=== PATIENT | female | born 1945 | race Caucasian/White ===

== ENCOUNTER 2016-05-18 11:40 | Emergency (ER) | payer OTHER ==
[~2016-05-18] VITALS: Ht 152.4 cm; Wt 69.9 kg
[~2016-05-18 11:40] MED LIST: ALPR0.5T PO; ASPI81CH43 PO; ATEN-60 PO; CYAN100023 PO
[2016-05-18 13:06] LABS: Basophils # (auto) 0.1 uL; Basophils % (auto) 0.4 % (0.0-2.0); Eosinophils # (auto) 0 uL; Hematocrit 48.4 % (36.0-46.0); Hemoglobin 15.6 g/dL (12.2-16.2); Lymphocytes # (auto) 1.1 uL; Lymphocytes % (auto) 8.3 % (10.0-50.0); Mean Corpuscular Hemoglobin 31.8 pg (28.0-32.0); Mean Corpuscular Hgb Conc. 32.3 g/dL (32.0-36.0); Mean Corpuscular Volume 98.2 fL (80.0-100.0); Mean Platelet Volume 7.7 fL (7.4-10.4); Monocytes # (auto) 0.9 uL; Monocytes % (auto) 6.9 % (0.0-12.0); Neutrophils # (auto) 11.1 uL; Neutrophils % (auto) 84.4 % (37.0-80.0); Platelet Count (auto) 365 10^3/uL (140-450); Red Cell Distribution Width 14.8 % (11.6-16.0); White Blood Cell 13.2 10^3/uL (4.4-10.8)
[2016-05-18 13:25] LABS: Albumin 4.2 g/dL (3.4-5.0); BUN/Creatinine Ratio 13.1; Bilirubin, Total 0.8 mg/dL (0.2-1.0); Calcium 9.3 mg/dL (8.5-10.1); Potassium 3.3 mmol/L (3.5-5.1); Total Protein 8.1 g/dL (6.4-8.2)
[2016-05-18 13:31] VITALS: BP 138/80
== END 2016-05-18 18:50 | disposition home or self-care (01) ==
LOC: EDBD 11:40 → ER 11:42
DX: R40.4 Transient alteration of awareness (principal); J44.9 Chronic obstructive pulmonary disease, unspecified; M19.90 Unspecified osteoarthritis, unspecified site; K50.90 Crohn's disease, unspecified, without complications; F17.210 Nicotine dependence, cigarettes, uncomplicated; Z79.82 Long term (current) use of aspirin; G89.29 Other chronic pain; R11.2 Nausea with vomiting, unspecified
CPT/HCPCS: 36415; 70450; 80053; 85025; 85049; 93005; 94761

== ENCOUNTER 2017-08-03 15:38 | Emergency (ER) | payer OTHER ==
[~2017-08-03] VITALS: Ht 152.4 cm; Wt 63.5 kg
[~2017-08-03 15:38] MED LIST changes: +ALPR0.254 PO; -ALPR0.5T PO; +CALC600T80 PO; +CHL4PW GT; +DICL1GEL26 TD; +GABA100C9 PO; +HYDR-4683 PO; +PANT40T PO; +SERT-138 PO; +TEMA15CA91 PO
[2017-08-03] MEDS ORDERED: SODIUM CHLORIDE 0.9% 1,000 ML IV ONE (16:00)
[2017-08-03 17:01] LABS: Basophils # (auto) 0.1 uL; Basophils % (auto) 1.2 % (0.0-2.0); Eosinophils # (auto) 0.2 uL; Lymphocytes # (auto) 2.2 uL; White Blood Cell 6.1 10^3/uL (4.4-10.8)
[2017-08-03 17:04] LABS: Eosinophils % (auto) 3.5 % (0.0-7.0); Hematocrit 37.2 % (36.0-46.0); Hemoglobin 12.3 g/dL (12.2-16.2); Mean Corpuscular Hemoglobin 35.5 pg (28.0-32.0); Mean Corpuscular Hgb Conc. 33.2 g/dL (32.0-36.0); Mean Corpuscular Volume 107.1 fL (80.0-100.0); Monocytes # (auto) 0.5 uL; Monocytes % (auto) 7.7 % (0.0-12.0); Neutrophils # (auto) 3.1 uL; Neutrophils % (auto) 51.6 % (37.0-80.0); Platelet Count (auto) 245 10^3/uL (140-450); Red Blood Cells 3.48 10^6/uL (4.0-5.20); Red Cell Distribution Width 14.7 % (11.8-14.3)
[2017-08-03 17:27] LABS: Alanine Aminotransferase 17 U/L (13-56); Albumin 3.5 g/dL (3.4-5.0); Alkaline Phosphatase 79 U/L (45-117); Anion Gap 10 (5-15); Aspartate Aminotransferase 15 U/L (15-37); Bilirubin, Total 0.2 mg/dL (0.2-1.0); Blood Urea Nitrogen 19 mg/dL (7-18); Carbon Dioxide 21 mmol/L (21-32); Chloride 111 mmol/L (98-107); GFR African American 49 mL/min; GFR Non-African American 41 mL/min; Glucose 81 mg/dL (74-106); Magnesium 2.2 mg/dL (1.6-2.6); Potassium 3.7 mmol/L (3.5-5.1); Sodium 142 mmol/L (136-145); Total Protein 6.7 g/dL (6.4-8.2)
[2017-08-03 19:42] VITALS: BP 140/102
[2017-08-03 19:58] LABS: Urine Bacteria FEW /hpf (None Seen); Urine Blood Negative /uL (Negative); Urine Specific Gravity 1.009 (1.001-1.035); Urine WBC 197 /hpf (0 - 5)
[2017-08-03 20:08] LABS: Amphetamine Screen, Urine NEGATIVE (NEGATIVE); Barbiturate Scree,Urine NEGATIVE (NEGATIVE); Benzodiazephine Screen, Urine POSITIVE (NEGATIVE); Cannabinoid Screen, Urine NEGATIVE (NEGATIVE); Cocaine Screen, Urine NEGATIVE (NEGATIVE); Opiate Scree,Urine POSITIVE (NEGATIVE); Phencyclidine Screen, Urine NEGATIVE (NEGATIVE)
== END 2017-08-03 19:48 | disposition home or self-care (01) ==
LOC: EDBD 15:38 → ER 15:40
DX: E86.0 Dehydration (principal); R55 Syncope and collapse; F10.10 Alcohol abuse, uncomplicated; G89.29 Other chronic pain; F17.210 Nicotine dependence, cigarettes, uncomplicated; I10 Essential (primary) hypertension; J44.9 Chronic obstructive pulmonary disease, unspecified; F41.9 Anxiety disorder, unspecified; M19.90 Unspecified osteoarthritis, unspecified site
CPT/HCPCS: 36415; 70450; 80053; 80307; 80320; 81001; 83735; 84484; 85025; 93005; 96360; 99285; J7030

== ENCOUNTER 2018-02-18 21:26 | Emergency (ER) | payer SELFPAY ==
[~2018-02-18] VITALS: Ht 142.2 cm; Wt 59.0 kg
[2018-02-18 22:42] LABS: Basophils # (auto) 0.2 uL; Eosinophils # (auto) 0.4 uL; Monocytes # (auto) 0.7 uL; Nucleated Red Blood Cells % 0.1 %
[2018-02-18 22:46] LABS: Basophils % (auto) 1.9 % (0.0-2.0); Eosinophils % (auto) 4.2 % (0.0-7.0); Hematocrit 51.3 % (36.0-46.0); Lymphocytes # (auto) 3.5 uL; Lymphocytes % (auto) 37.5 % (10.0-50.0); Mean Corpuscular Hemoglobin 35.4 pg (28.0-32.0); Mean Corpuscular Hgb Conc. 33.1 g/dL (32.0-36.0); Mean Corpuscular Volume 106.9 fL (80.0-100.0); Monocytes % (auto) 7.6 % (0.0-12.0); Neutrophils # (auto) 4.6 uL; Neutrophils % (auto) 48.8 % (37.0-80.0); Platelet Count (auto) 167 10^3/uL (140-450); White Blood Cell 9.4 10^3/uL (4.4-10.8)
[2018-02-18 22:58] LABS: Anion Gap 10 (5-15); Blood Urea Nitrogen 16 mg/dL (7-18); Calcium 9.2 mg/dL (8.5-10.1); Carbon Dioxide 25 mmol/L (21-32); Chloride 103 mmol/L (98-107); Glucose 79 mg/dL (74-106); Potassium 3.8 mmol/L (3.5-5.1); Sodium 138 mmol/L (136-145)
[2018-02-18 23:06] LABS: Alanine Aminotransferase 38 U/L (13-56); Alkaline Phosphatase 85 U/L (45-117); Aspartate Aminotransferase 38 U/L (15-37); BUN/Creatinine Ratio 13.8; Bilirubin, Total 0.3 mg/dL (0.2-1.0); GFR African American 59 mL/min; GFR Non-African American 49 mL/min
[2018-02-18] MEDS ORDERED: ONDANSETRON HCL 4 MG/2 ML VIAL IV ONE (23:15)
[2018-02-18] MEDS ORDERED: MORPHINE SULFATE 4 MG/ML SYR/VIAL IV ONE (23:15)
[2018-02-19 00:17] LABS: Urine Bacteria FEW /hpf (None Seen); Urine Blood Negative /uL (Negative); Urine Specific Gravity 1.008 (1.001-1.035); Urine WBC 35 /hpf (0 - 5)
[2018-02-19 02:42] VITALS: BP 99/48
[2018-02-19] MEDS ORDERED: ACETAMINOPHEN 500 MG TAB PO ONE (06:15)
== END 2018-02-19 04:46 | disposition home or self-care (01) ==
LOC: EDBD 21:26 → ER 21:32
DX: S32.018A Other fracture of first lumbar vertebra, initial encounter for closed fracture (principal); S16.1XXA Strain of muscle, fascia and tendon at neck level, initial encounter; S39.012A Strain of muscle, fascia and tendon of lower back, initial encounter; G92 Toxic encephalopathy; F10.120 Alcohol abuse with intoxication, uncomplicated; F17.210 Nicotine dependence, cigarettes, uncomplicated; J44.9 Chronic obstructive pulmonary disease, unspecified; I11.0 Hypertensive heart disease with heart failure; I50.9 Heart failure, unspecified; M19.90 Unspecified osteoarthritis, unspecified site; Z90.49 Acquired absence of other specified parts of digestive tract; Z90.89 Acquired absence of other organs; Z90.710 Acquired absence of both cervix and uterus; W22.8XXA Striking against or struck by other objects, initial encounter; Y93.89 Activity, other specified; Y99.8 Other external cause status; Y92.89 Other specified places as the place of occurrence of the external cause
CPT/HCPCS: 36415; 70450; 72125; 72128; 72131; 74176; 80053; 80320; 81001; 83880; 84484; 85025; 96374; 96375; 99285; J2270; J2405

== ENCOUNTER → 2018-10-25 | Outpatient (CLI) | payer OTHER ==
[2018-10-25 12:29] LABS: Basophils # (auto) 0.1 uL; Basophils % (auto) 0.9 % (0.0-2.0); Eosinophils # (auto) 0.3 uL; Eosinophils % (auto) 3.9 % (0.0-7.0); Hematocrit 36.9 % (36.0-46.0); Hemoglobin 11.6 g/dL (12.2-16.2); Lymphocytes # (auto) 1.8 uL; Lymphocytes % (auto) 24.6 % (10.0-50.0); Mean Corpuscular Hgb Conc. 31.6 g/dL (32.0-36.0); Monocytes # (auto) 0.5 uL; Monocytes % (auto) 6.7 % (0.0-12.0); Neutrophils # (auto) 4.7 uL; Neutrophils % (auto) 63.9 % (37.0-80.0); Platelet Count (auto) 350 10^3/uL (140-450); Red Blood Cells 3.76 10^6/uL (4.0-5.20); Red Cell Distribution Width 14.9 % (11.8-14.3); White Blood Cell 7.4 10^3/uL (4.4-10.8)
[2018-10-25 13:04] LABS: Albumin 3.5 g/dL (3.4-5.0); Calcium 9.5 mg/dL (8.5-10.1); Potassium 3.9 mmol/L (3.5-5.1)
[2018-10-25 13:09] LABS: BUN/Creatinine Ratio 11.3; Bilirubin, Total 0.4 mg/dL (0.2-1.0); CRP High Sensitivity 0.54 mg/dL (< 0.3); Total Protein 6.7 g/dL (6.4-8.2); Uric Acid 6.5 mg/dL (2.6-6.0)
[2018-10-25 13:15] LABS: Urine Bacteria FEW /hpf (None Seen); Urine Blood 1+ /uL (Negative); Urine Mucus FEW (None Seen); Urine Specific Gravity 1.015 (1.001-1.035); Urine WBC 684 /hpf (0 - 5); Urine WBC Clumps PRESENT /hpf (None Seen)
[2018-10-25 13:16] LABS: Folate (Folic Acid) 4.27 ng/mL (5.38-24)
[2018-10-25 16:36] LABS: Alcohol, Urine < 3.0 mg/dL (0-5); Amphetamine Screen, Urine NEGATIVE (NEGATIVE); Barbiturate Scree,Urine NEGATIVE (NEGATIVE); Benzodiazephine Screen, Urine NEGATIVE (NEGATIVE); Cannabinoid Screen, Urine NEGATIVE (NEGATIVE); Cocaine Screen, Urine NEGATIVE (NEGATIVE); Opiate Scree,Urine POSITIVE (NEGATIVE); Phencyclidine Screen, Urine NEGATIVE (NEGATIVE)
== END | disposition home or self-care (01) ==
LOC: LAB 11:12
PROVIDERS: ATTEND Nurse Practitioner
DX: E78.5 Hyperlipidemia, unspecified (principal); I10 Essential (primary) hypertension; J44.9 Chronic obstructive pulmonary disease, unspecified; F32.9 Major depressive disorder, single episode, unspecified
CPT/HCPCS: 36415; 80053; 80061; 80307; 81001; 82306; 82607; 82746; 83036; 83880; 84443; 84550; 85025; 85652; 86141

== ENCOUNTER → 2019-08-05 | Emergency (ER) | payer OTHER ==
[~2019-08-05] VITALS: Ht 149.9 cm; Wt 59.0 kg
[~2019-08-05] MED LIST changes: +ACETAMINOPHEN 325 MG TAB PO ONE; +AZIT250T8 PO; +CHL4PW PO; +FOLI1TAB6 PO; -HYDR-4683 PO; +HYDR-4833 PO; +LISI10TA6 PO; +MORPHINE SULFATE 4 MG/ML SYR/VIAL IV ONE; +MULTCAP45 PO; +ONDANSETRON HCL 4 MG/2 ML VIAL IV ONE; -SERT-138 PO; +SERT50TA PO; +SODIUM CHLORIDE 0.9% 1,000 ML IV ONE; +THIA100T5 PO
[2019-08-05 22:46] LABS: Basophils # (auto) 0.1 10 ^3/uL (0-0.2); Basophils % (auto) 1.3 % (0.0-2.0); Eosinophils # (auto) 0.2 10 ^3/uL (0-0.8); Eosinophils % (auto) 2.3 % (0.0-7.0); Hematocrit 41.4 % (36.0-46.0); Hemoglobin 13.5 g/dL (12.2-16.2); Lymphocytes # (auto) 2.2 10 ^3/uL (0.4-5.4); Lymphocytes % (auto) 24.4 % (10.0-50.0); Mean Corpuscular Hemoglobin 31.4 pg (28.0-32.0); Mean Corpuscular Hgb Conc. 32.7 g/dL (32.0-36.0); Mean Corpuscular Volume 96.1 fL (80.0-100.0); Monocytes # (auto) 0.8 10 ^3/uL (0-1.3); Monocytes % (auto) 8.8 % (0.0-12.0); Neutrophils # (auto) 5.7 10 ^3/uL (1.6-8.6); Neutrophils % (auto) 63.2 % (37.0-80.0); Nucleated Red Blood Cells % 0.1 %; Platelet Count (auto) 283 10^3/uL (140-450); Red Blood Cells 4.31 10^6/uL (4.0-5.20); Red Cell Distribution Width 17.1 % (11.8-14.3); White Blood Cell 8.9 10^3/uL (4.4-10.8)
[2019-08-05 23:01] LABS: Albumin 3.7 g/dL (3.4-5.0); Calcium 9.3 mg/dL (8.5-10.1); Magnesium 2.4 mg/dL (1.6-2.6); Potassium 4.2 mmol/L (3.5-5.1)
[2019-08-05 23:05] LABS: BUN/Creatinine Ratio 17.2; Bilirubin, Total 0.2 mg/dL (0.2-1.0); Total Protein 7.6 g/dL (6.4-8.2)
[2019-08-06 00:09] VITALS: BP 144/76
== END | disposition home or self-care (01) ==
LOC: EDUNIT# 21:19 → ER 21:30 → EDBD 21:30
DX: S06.0X0A Concussion without loss of consciousness, initial encounter (principal); F10.129 Alcohol abuse with intoxication, unspecified; S00.83XA Contusion of other part of head, initial encounter; M54.2 Cervicalgia; F17.210 Nicotine dependence, cigarettes, uncomplicated; J44.9 Chronic obstructive pulmonary disease, unspecified; I10 Essential (primary) hypertension; Z90.49 Acquired absence of other specified parts of digestive tract; Z90.710 Acquired absence of both cervix and uterus; W06.XXXA Fall from bed, initial encounter; Y93.89 Activity, other specified; Y92.89 Other specified places as the place of occurrence of the external cause; Y99.8 Other external cause status; Y90.9 Presence of alcohol in blood, level not specified
CPT/HCPCS: 36415; 70450; 71045; 72125; 80053; 80320; 83735; 85025; 93005; 96361; 96374; 96375; 99285; J2270; J2405; J7030

== ENCOUNTER 2019-08-09 04:45 | Inpatient (IN) | payer OTHER ==
[~2019-08-09] VITALS: Ht 149.9 cm; Wt 69.3 kg
[~2019-08-09 04:45] MED LIST changes: -ACETAMINOPHEN 325 MG TAB PO ONE; -AZIT250T8 PO; -CHL4PW PO; -FOLI1TAB6 PO; -LISI10TA6 PO; -MORPHINE SULFATE 4 MG/ML SYR/VIAL IV ONE; -MULTCAP45 PO; -ONDANSETRON HCL 4 MG/2 ML VIAL IV ONE; -SODIUM CHLORIDE 0.9% 1,000 ML IV ONE; -THIA100T5 PO
[2019-08-09 05:44] LABS: Basophils # (auto) 0.1 10 ^3/uL (0-0.2); Basophils % (auto) 0.9 % (0.0-2.0); Eosinophils # (auto) 0 10 ^3/uL (0-0.8); Eosinophils % (auto) 0.2 % (0.0-7.0); Hematocrit 39.6 % (36.0-46.0); Lymphocytes # (auto) 1.2 10 ^3/uL (0.4-5.4); Lymphocytes % (auto) 11.9 % (10.0-50.0); Mean Corpuscular Hemoglobin 31.5 pg (28.0-32.0); Mean Corpuscular Hgb Conc. 32.7 g/dL (32.0-36.0); Mean Corpuscular Volume 96.4 fL (80.0-100.0); Monocytes # (auto) 0.5 10 ^3/uL (0-1.3); Monocytes % (auto) 5.5 % (0.0-12.0); Neutrophils % (auto) 81.5 % (37.0-80.0); Platelet Count (auto) 326 10^3/uL (140-450); Red Blood Cells 4.11 10^6/uL (4.0-5.20); Red Cell Distribution Width 16.8 % (11.8-14.3); White Blood Cell 9.8 10^3/uL (4.4-10.8)
[2019-08-09] MEDS ORDERED: ONDANSETRON HCL 4 MG/2 ML VIAL IV ONE (05:45)
[2019-08-09] MEDS ORDERED: MORPHINE SULF INJ 2 MG/ML SYRINGE 1ML IV ONE (05:45)
[2019-08-09 06:05] LABS: INR 0.97 (0.9-1.15); Partial Thromboplastin Time 23.6 sec (23.64-32.05)
[2019-08-09 06:11] LABS: Albumin 3.9 g/dL (3.4-5.0); Anion Gap 10 (5-15); Blood Urea Nitrogen 17 mg/dL (7-18); Carbon Dioxide 27 mmol/L (21-32); Chloride 106 mmol/L (98-107); Glucose 132 mg/dL (74-106); Magnesium 2.2 mg/dL (1.6-2.6); Potassium 3.7 mmol/L (3.5-5.1); Sodium 143 mmol/L (136-145)
[2019-08-09 06:16] LABS: Alanine Aminotransferase 20 U/L (13-56); Alkaline Phosphatase 67 U/L (45-117); Aspartate Aminotransferase 19 U/L (15-37); BUN/Creatinine Ratio 13.2; Bilirubin, Total 0.6 mg/dL (0.2-1.0); GFR African American 52 mL/min; GFR Non-African American 43 mL/min; Total Protein 7.8 g/dL (6.4-8.2)
[2019-08-09] MEDS ORDERED: levoFLOXacin 500MG 100 ML IV ONE (06:30)
[2019-08-09] MEDS ORDERED: HYDROcodone-ACET 5/325MG TAB PO PRN (07:30)
[2019-08-09] MEDS ORDERED: DOCUSATE SOD 100 MG CAP PO PRN (07:30)
[2019-08-09] MEDS ORDERED: MORPHINE SULF INJ 2 MG/ML SYRINGE 1ML IV PRN (07:30)
[2019-08-09] MEDS ORDERED: ALBUTEROL SULF 2.5 MG/0.5ML(0.5%) NEB SOLN NEB PRN (07:30)
[2019-08-09] MEDS ORDERED: ONDANSETRON HCL 4 MG/2 ML VIAL IV PRN (07:30)
[2019-08-09] MEDS ORDERED: IPRATROPIUM BROM 0.5 MG/2.5ML INH SOL NEB PRN (07:30)
[2019-08-09] MEDS ORDERED: ACETAMINOPHEN 325 MG TAB PO PRN (07:30)
[2019-08-09] MEDS ORDERED: NITROGLYCERIN 0.4 MG SL TAB SL PRN (07:30)
[2019-08-09] MEDS ORDERED: TEMAZEPAM 15 MG CAP PO PRN (07:30)
[2019-08-09 07:40] VITALS: BP 150/55
[2019-08-09] MEDS: SODIUM CHLORIDE 0.9% 1,000 ML IV SCH (07:55)
[2019-08-09] MEDS: CALCIUM W/VIT D (600MG/400IU) TAB PO SCH ×2 (08:10→17:47)
[2019-08-09] MEDS: HYDROcodone-ACET 5/325MG TAB PO PRN ×2 (09:18→15:45)
[2019-08-09] MEDS ORDERED: CLOPIDOGREL BISULFATE 75 MG TAB PO SCH (10:00)
[2019-08-09] MEDS: methylPREDNISolone SOD SUCC 125 MG/2 ML VL IV SCH (11:20)
[2019-08-09] MEDS: cefTRIAXone 1GM/50ML D5W 50 ML IV SCH (11:20)
[2019-08-09] MEDS: ATENOLOL 25 MG TAB PO SCH (11:21)
[2019-08-09] MEDS: GABAPENTIN 100 MG CAP PO SCH ×2 (11:21→21:18)
[2019-08-09] MEDS: SERTRALINE HCL 50 MG TAB PO SCH (11:22)
[2019-08-09] MEDS: PANTOPRAZOLE 40 MG TAB PO SCH ×2 (11:22→21:18)
[2019-08-09] MEDS: MORPHINE SULFATE 4 MG/ML SYR/VIAL IV PRN ×2 (11:35→21:19)
[2019-08-09 12:19] VITALS: BP 154/70
[2019-08-09] MEDS ORDERED: NICOTINE 21MG/24 HR TOPICAL PATCH TD ONE (13:00)
[2019-08-09 13:28] VITALS: BP 156/77
[2019-08-09] MEDS ORDERED: CHOLESTYRAMINE 4 GM POWDER GT SCH (14:00)
[2019-08-09] MEDS ORDERED: hydrALAZINE HCL 20 MG/ML VL IV PRN (15:15)
[2019-08-09] MEDS ORDERED: LISINOPRIL 10 MG TAB PO ONE (15:15)
[2019-08-09 15:35] LABS: Cholesterol 213 mg/dL (< 200); Triglycerides 88 mg/dL (< 150)
[2019-08-09 15:37] LABS: HDL Cholesterol 99 mg/dL (40-59); LDL Cholesterol 88 mg/dL (< 100)
[2019-08-09] MEDS: CHOLESTYRAMINE 4 GM POWDER PO SCH ×2 (15:41→21:18)
[2019-08-09 16:46] VITALS: BP 148/69
[2019-08-09] MEDS: LORazepam 0.5 MG TAB PO PRN (17:47)
[2019-08-09 22:00] VITALS: BP 101/58
[2019-08-10] MEDS: SODIUM CHLORIDE 0.9% 1,000 ML IV SCH ×2 (00:47→16:36)
[2019-08-10] MEDS: MORPHINE SULFATE 4 MG/ML SYR/VIAL IV PRN ×2 (01:55→10:15)
[2019-08-10] MEDS: HYDROcodone-ACET 5/325MG TAB PO PRN ×2 (04:58→11:42)
[2019-08-10 05:00] VITALS: BP 125/68
[2019-08-10] MEDS: CHOLESTYRAMINE 4 GM POWDER PO SCH ×3 (06:00→21:53)
[2019-08-10] MEDS: CALCIUM W/VIT D (600MG/400IU) TAB PO SCH ×2 (08:00→18:57)
[2019-08-10] MEDS ORDERED: ADENOSINE 56 MG in GIVE UN-DILUTED 0 ML IV STA (08:06)
[2019-08-10 09:15] VITALS: BP 121/91
[2019-08-10] MEDS: MORPHINE SULF INJ 2 MG/ML SYRINGE 1ML IV PRN ×4 (10:14→23:57)
[2019-08-10] MEDS: GABAPENTIN 100 MG CAP PO SCH ×2 (10:14→21:53)
[2019-08-10] MEDS: LISINOPRIL 10 MG TAB PO SCH (10:14)
[2019-08-10] MEDS: SERTRALINE HCL 50 MG TAB PO SCH (10:14)
[2019-08-10] MEDS: PANTOPRAZOLE 40 MG TAB PO SCH ×2 (10:14→21:54)
[2019-08-10] MEDS: ATENOLOL 25 MG TAB PO SCH (10:15)
[2019-08-10] MEDS: methylPREDNISolone SOD SUCC 125 MG/2 ML VL IV SCH (10:15)
[2019-08-10] MEDS: cefTRIAXone 1GM/50ML D5W 50 ML IV SCH (10:16)
[2019-08-10] MEDS ORDERED: LISI10TA6 PO (10:34)
[2019-08-10] MEDS ORDERED: CHL4PW PO (10:34)
[2019-08-10] MEDS: NICOTINE 21MG/24 HR TOPICAL PATCH TD SCH (10:34)
[2019-08-10] MEDS ORDERED: IOHEXOL 350 MG/ML 100ML IJ ONE ×2 (11:23→16:34)
[2019-08-10] MEDS: FOLIC ACID 1 MG, MULTIPLE VITAMIN 10 ML, MAGNESIUM SULF SDV 50% 8 MEQ, THIAMINE INJ 100... INJ SCH ×5 (12:15)
[2019-08-10 13:00] VITALS: BP 91/54
[2019-08-10 16:36] VITALS: BP 125/65
[2019-08-10] MEDS: LORazepam 0.5 MG TAB PO PRN (20:42)
[2019-08-10 21:47] VITALS: BP 119/59
[2019-08-11] MEDS: MORPHINE SULF INJ 2 MG/ML SYRINGE 1ML IV PRN (04:24)
[2019-08-11 05:06] VITALS: BP 158/70
[2019-08-11] MEDS: CHOLESTYRAMINE 4 GM POWDER PO SCH (06:00)
[2019-08-11 08:00] VITALS: BP 117/57
[2019-08-11 09:00] VITALS: BP 117/57
[2019-08-11] MEDS: methylPREDNISolone SOD SUCC 125 MG/2 ML VL IV SCH (09:50)
[2019-08-11] MEDS: SERTRALINE HCL 50 MG TAB PO SCH (09:51)
[2019-08-11] MEDS: CALCIUM W/VIT D (600MG/400IU) TAB PO SCH (09:51)
[2019-08-11] MEDS: PANTOPRAZOLE 40 MG TAB PO SCH (09:52)
[2019-08-11] MEDS: GABAPENTIN 100 MG CAP PO SCH (09:53)
[2019-08-11] MEDS: LISINOPRIL 10 MG TAB PO SCH (09:55)
[2019-08-11] MEDS: ATENOLOL 25 MG TAB PO SCH (09:56)
[2019-08-11] MEDS: cefTRIAXone 1GM/50ML D5W 50 ML IV SCH (09:59)
[2019-08-11] MEDS: NICOTINE 21MG/24 HR TOPICAL PATCH TD SCH (10:00)
[2019-08-11] MEDS: FOLIC ACID 1 MG, MULTIPLE VITAMIN 10 ML, MAGNESIUM SULF SDV 50% 8 MEQ, THIAMINE INJ 100... INJ SCH ×5 (10:00)
[2019-08-11 12:01] VITALS: BP 136/66
[2019-08-11] MEDS ORDERED: THIA100T5 PO (12:36)
[2019-08-11] MEDS ORDERED: FOLI1TAB6 PO (12:36)
[2019-08-11] MEDS ORDERED: HYDR-4833 PO (12:36)
[2019-08-11] MEDS ORDERED: AZIT250T8 PO (12:36)
[2019-08-11] MEDS ORDERED: MULTCAP45 PO (12:36)
== END 2019-08-11 13:30 | disposition home or self-care (01) | DRG 190 ==
LOC: EDBD 04:45 → ER 04:45 → TELE 04:46 → TELE-WESTW 09:32
PROVIDERS: ADMIT Hospitalist; ATTEND Family Medicine
DX: J44.1 Chronic obstructive pulmonary disease with (acute) exacerbation (principal); J18.9 Pneumonia, unspecified organism; K50.90 Crohn's disease, unspecified, without complications; J44.0 Chronic obstructive pulmonary disease with (acute) lower respiratory infection; R07.81 Pleurodynia; E86.0 Dehydration; G62.9 Polyneuropathy, unspecified; F32.9 Major depressive disorder, single episode, unspecified; K21.9 Gastro-esophageal reflux disease without esophagitis; I10 Essential (primary) hypertension; F10.10 Alcohol abuse, uncomplicated; E66.9 Obesity, unspecified; M19.90 Unspecified osteoarthritis, unspecified site; F41.9 Anxiety disorder, unspecified; Z72.0 Tobacco use; Z82.49 Family history of ischemic heart disease and other diseases of the circulatory system; Z88.6 Allergy status to analgesic agent; Z68.30 Body mass index [BMI] 30.0-30.9, adult; Z71.6 Tobacco abuse counseling; Z88.8 Allergy status to other drugs, medicaments and biological substances; Z90.49 Acquired absence of other specified parts of digestive tract; Z90.710 Acquired absence of both cervix and uterus
CPT/HCPCS: 36415; 71045; 71275; 78452; 80053; 80061; 83605; 83735; 83880; 84443; 84484; 85025; 85379; 85610; 85730; 87040; 87070; 87804; 87880; 93005; 93017; 93306; 93970; 96365; 96375; G0378; J0153; J0696; J1956; J2405

== ENCOUNTER 2020-07-21 11:16 | Emergency (ER) | payer OTHER ==
[~2020-07-21] VITALS: Ht 152.4 cm; Wt 60.2 kg
[~2020-07-21 11:16] MED LIST changes: +AZIT250T8 PO; -CHL4PW GT; +CHL4PW PO; +FOLI1TAB6 PO; +LISI-648 PO; +MULTCAP45 PO; +TEMA15CA2 PO; -TEMA15CA91 PO; +THIA100T5 PO
[2020-07-21] MEDS ORDERED: ACETAMINOPHEN 500 MG TAB PO ONE (11:45)
[2020-07-21] MEDS ORDERED: SODIUM CHLORIDE 0.9% 1,000 ML IV ONE (12:00)
[2020-07-21] MEDS ORDERED: IBUPROFEN 600 MG TAB PO ONE (12:30)
[2020-07-21 12:41] LABS: Basophils # (auto) 0.1 10 ^3/uL (0-0.2); Basophils % (auto) 0.6 % (0.0-2.0); Eosinophils # (auto) 0.4 10 ^3/uL (0-0.8); Eosinophils % (auto) 3.9 % (0.0-7.0); Hematocrit 40.9 % (36.0-46.0); Hemoglobin 13.5 g/dL (12.2-16.2); Lymphocytes # (auto) 1.5 10 ^3/uL (0.4-5.4); Lymphocytes % (auto) 14.8 % (10.0-50.0); Mean Corpuscular Hemoglobin 33.5 pg (28.0-32.0); Mean Corpuscular Hgb Conc. 33.1 g/dL (32.0-36.0); Mean Corpuscular Volume 101.1 fL (80.0-100.0); Monocytes # (auto) 0.4 10 ^3/uL (0-1.3); Monocytes % (auto) 4.2 % (0.0-12.0); Neutrophils # (auto) 7.6 10 ^3/uL (1.6-8.6); Neutrophils % (auto) 76.5 % (37.0-80.0); Nucleated Red Blood Cells % 0.1 %; Platelet Count (auto) 306 10^3/uL (140-450); Red Blood Cells 4.04 10^6/uL (4.0-5.20); Red Cell Distribution Width 15.4 % (11.8-14.3)
[2020-07-21 13:08] LABS: Alanine Aminotransferase 17 U/L (13-56); Albumin 4.1 g/dL (3.4-5.0); Anion Gap 8 (5-15); Blood Urea Nitrogen 15 mg/dL (7-18); Calcium 9.4 mg/dL (8.5-10.1); Carbon Dioxide 26 mmol/L (21-32); Chloride 108 mmol/L (98-107); Glucose 84 mg/dL (74-106); Potassium 3.8 mmol/L (3.5-5.1); Sodium 142 mmol/L (136-145)
[2020-07-21 13:13] LABS: Alkaline Phosphatase 73 U/L (45-117); Aspartate Aminotransferase 18 U/L (15-37); BUN/Creatinine Ratio 14.9; Bilirubin, Total 0.5 mg/dL (0.2-1.0); GFR African American 69 mL/min; GFR Non-African American 57 mL/min; Total Protein 7.8 g/dL (6.4-8.2)
[2020-07-21] MEDS ORDERED: ONDANSETRON HCL 4 MG/2 ML VIAL IV ONE (13:45)
[2020-07-21] MEDS ORDERED: MORPHINE SULF INJ 2 MG/ML SYRINGE 1ML IV ONE (13:45)
[2020-07-21 14:42] LABS: Urine Bacteria MANY /hpf (None Seen); Urine Blood 1+ /uL (Negative); Urine Hyaline Cast MOD /lpf (0 - 2); Urine Mucus FEW (None Seen); Urine Specific Gravity 1.017 (1.001-1.035); Urine WBC 2486 /hpf (0 - 5); Urine WBC Clumps PRESENT /hpf (None Seen)
[2020-07-21 15:37] VITALS: BP 149/59
[2020-07-21] MEDS ORDERED: cefTRIAXone 1GM/50ML D5W 50 ML IV ONE (16:30)
== END 2020-07-21 18:50 | disposition home or self-care (01) ==
LOC: EDBD 11:16 → EDUNIT# 11:16 → ER 11:16
DX: R07.89 Other chest pain (principal); N39.0 Urinary tract infection, site not specified; I10 Essential (primary) hypertension; E78.5 Hyperlipidemia, unspecified; F17.210 Nicotine dependence, cigarettes, uncomplicated; Z90.49 Acquired absence of other specified parts of digestive tract; Z90.710 Acquired absence of both cervix and uterus; Z79.899 Other long term (current) drug therapy; Z79.82 Long term (current) use of aspirin
CPT/HCPCS: 36415; 71046; 80053; 81001; 83735; 84443; 84484; 85025; 93005; 96361; 96365; 96375; 99285; J0696; J2270; J2405

== ENCOUNTER 2020-09-17 07:02 | Inpatient (IN) | payer OTHER ==
[~2020-09-17] VITALS: Ht 162.6 cm; Wt 63.3 kg
[~2020-09-17 07:02] MED LIST changes: -LISI-648 PO; +LISI-716 PO
[2020-09-17] MEDS ORDERED: FUROSEMIDE 40 MG/4 ML VIAL IV ONE (07:15)
[2020-09-17 08:41] LABS: Urine Bacteria MANY /hpf (None Seen); Urine Blood TRACE /uL (Negative); Urine Specific Gravity 1.013 (1.001-1.035); Urine WBC 473 /hpf (0 - 5); Urine WBC Clumps PRESENT /hpf (None Seen)
[2020-09-17 08:56] LABS: Basophils # (auto) 0.1 10 ^3/uL (0-0.2); Basophils % (auto) 0.8 % (0.0-2.0); Eosinophils # (auto) 0.3 10 ^3/uL (0-0.8); Eosinophils % (auto) 3.7 % (0.0-7.0); Hematocrit 38.9 % (36.0-46.0); Hemoglobin 12.8 g/dL (12.2-16.2); Lymphocytes # (auto) 0.8 10 ^3/uL (0.4-5.4); Lymphocytes % (auto) 9.7 % (10.0-50.0); Mean Corpuscular Hemoglobin 33.9 pg (28.0-32.0); Mean Corpuscular Hgb Conc. 32.8 g/dL (32.0-36.0); Mean Corpuscular Volume 103.2 fL (80.0-100.0); Monocytes # (auto) 0.6 10 ^3/uL (0-1.3); Monocytes % (auto) 7.2 % (0.0-12.0); Neutrophils # (auto) 6.9 10 ^3/uL (1.6-8.6); Neutrophils % (auto) 78.6 % (37.0-80.0); Red Blood Cells 3.77 10^6/uL (4.0-5.20); Red Cell Distribution Width 13.8 % (11.8-14.3); White Blood Cell 8.8 10^3/uL (4.4-10.8)
[2020-09-17 08:58] LABS: Alcohol, Urine < 3.0 mg/dL (0-10); Amphetamine Screen, Urine NEGATIVE (NEGATIVE); Barbiturate Scree,Urine NEGATIVE (NEGATIVE); Benzodiazephine Screen, Urine NEGATIVE (NEGATIVE); Cannabinoid Screen, Urine NEGATIVE (NEGATIVE); Cocaine Screen, Urine NEGATIVE (NEGATIVE); Opiate Scree,Urine POSITIVE (NEGATIVE); Phencyclidine Screen, Urine NEGATIVE (NEGATIVE)
[2020-09-17 09:12] LABS: Albumin 3.5 g/dL (3.4-5.0); Anion Gap 7 (5-15); Blood Urea Nitrogen 12 mg/dL (7-18); Calcium 8.5 mg/dL (8.5-10.1); Carbon Dioxide 26 mmol/L (21-32); Chloride 102 mmol/L (98-107); Glucose 94 mg/dL (74-106); Potassium 3.6 mmol/L (3.5-5.1); Sodium 135 mmol/L (136-145)
[2020-09-17 09:14] LABS: Alanine Aminotransferase 16 U/L (13-56); Aspartate Aminotransferase 20 U/L (15-37); GFR African American 50 mL/min; GFR Non-African American 41 mL/min
[2020-09-17] MEDS ORDERED: KETOROLAC TROMETH 30 MG/ML 1ML VIAL IV ONE (09:15)
[2020-09-17 09:19] LABS: Alkaline Phosphatase 88 U/L (45-117); Bilirubin, Total 0.6 mg/dL (0.2-1.0); Total Protein 6.7 g/dL (6.4-8.2)
[2020-09-17] MEDS ORDERED: cefTRIAXone 1GM/50ML D5W 50 ML IV ONE (09:45)
[2020-09-17] MEDS ORDERED: IPRATROPIUM BROM 0.5 MG/2.5ML INH SOL NEB PRN (10:15)
[2020-09-17] MEDS ORDERED: NITROGLYCERIN 0.4 MG SL TAB SL PRN (10:15)
[2020-09-17] MEDS ORDERED: ALBUTEROL SULF 2.5 MG/0.5ML(0.5%) NEB SOLN NEB PRN (10:15)
[2020-09-17] MEDS ORDERED: ONDANSETRON HCL 4 MG/2 ML VIAL IV PRN (10:15)
[2020-09-17] MEDS ORDERED: ACETAMINOPHEN 500 MG TAB PO PRN (10:15)
[2020-09-17] MEDS ORDERED: MORPHINE SULFATE INJECTION 2 MG/ML SYRG IV PRN (10:15)
[2020-09-17 11:32] VITALS: BP 98/41
[2020-09-17] MEDS: FOLIC ACID 1 MG, MULTIPLE VITAMIN 10 ML, MAGNESIUM SULF SDV 50% 8 MEQ, THIAMINE INJ 100... INJ SCH ×5 (11:50)
[2020-09-17 18:13] VITALS: BP 12/43
[2020-09-17] MEDS: CALCIUM W/VIT D (600MG/400IU) TAB PO SCH (18:18)
[2020-09-17] MEDS: GABAPENTIN 100 MG CAP PO SCH (21:36)
[2020-09-17] MEDS: HYDROcodone-ACET 5/325MG TAB PO PRN (21:38)
[2020-09-17 22:00] VITALS: BP 127/105
[2020-09-18 05:00] VITALS: BP 100/52
[2020-09-18 08:00] VITALS: BP 135/75
[2020-09-18 09:00] VITALS: BP 127/64
[2020-09-18] MEDS: ASPirin 81 mg TAB PO SCH (09:36)
[2020-09-18] MEDS: CALCIUM W/VIT D (600MG/400IU) TAB PO SCH ×2 (09:37→18:00)
[2020-09-18] MEDS: FAMOTIDINE 20 MG TAB PO SCH (09:37)
[2020-09-18] MEDS: LISINOPRIL 10 MG TAB PO SCH (09:38)
[2020-09-18] MEDS: SERTRALINE HCL 50 MG TAB PO SCH (09:38)
[2020-09-18] MEDS: HYDROcodone-ACET 5/325MG TAB PO PRN ×2 (09:41→17:34)
[2020-09-18] MEDS: ATENOLOL 25 MG TAB PO SCH (10:00)
[2020-09-18] MEDS: GABAPENTIN 100 MG CAP PO SCH ×2 (10:00→20:40)
[2020-09-18] MEDS: cefTRIAXone 1GM/50ML D5W 50 ML IV SCH (10:43)
[2020-09-18] MEDS: MORPHINE SULFATE INJECTION 2 MG/ML SYRG IV PRN ×2 (12:24→20:40)
[2020-09-18] MEDS: FOLIC ACID 1 MG, MULTIPLE VITAMIN 10 ML, MAGNESIUM SULF SDV 50% 8 MEQ, THIAMINE INJ 100... INJ SCH ×5 (12:46)
[2020-09-18 13:00] VITALS: BP 149/76
[2020-09-18 17:00] VITALS: BP 142/71
[2020-09-18 22:00] VITALS: BP 163/71
[2020-09-19] MEDS: HYDROcodone-ACET 5/325MG TAB PO PRN (01:00)
[2020-09-19 05:18] VITALS: BP 142/60
[2020-09-19] MEDS: MORPHINE SULFATE INJECTION 2 MG/ML SYRG IV PRN ×2 (06:50→17:32)
[2020-09-19] MEDS: ASPirin 81 mg TAB PO SCH (08:59)
[2020-09-19] MEDS: CALCIUM W/VIT D (600MG/400IU) TAB PO SCH ×2 (08:59→17:33)
[2020-09-19] MEDS: GABAPENTIN 100 MG CAP PO SCH ×2 (08:59→21:32)
[2020-09-19 09:00] VITALS: BP 145/74
[2020-09-19] MEDS: FAMOTIDINE 20 MG TAB PO SCH (09:00)
[2020-09-19] MEDS: cefTRIAXone 1GM/50ML D5W 50 ML IV SCH (09:00)
[2020-09-19] MEDS: SERTRALINE HCL 50 MG TAB PO SCH (09:00)
[2020-09-19] MEDS: ATENOLOL 25 MG TAB PO SCH (09:08)
[2020-09-19] MEDS: LISINOPRIL 10 MG TAB PO SCH (09:08)
[2020-09-19] MEDS ORDERED: LORazepam 2MG/ML-1ML VIAL IV ONE (09:45)
[2020-09-19] MEDS ORDERED: LORazepam 2MG/ML-1ML VIAL IV PRN (11:00)
[2020-09-19 13:00] VITALS: BP 145/55
[2020-09-19] MEDS: chlordiazePOXIDE HCL 25 MG CAP PO SCH ×2 (15:09→21:32)
[2020-09-19] MEDS: FOLIC ACID 1 MG, MULTIPLE VITAMIN 10 ML, MAGNESIUM SULF SDV 50% 8 MEQ, THIAMINE INJ 100... INJ SCH ×5 (16:57)
[2020-09-19 17:00] VITALS: BP 142/75
[2020-09-19 22:00] VITALS: BP 132/71
[2020-09-20 05:00] VITALS: BP 152/64
[2020-09-20] MEDS: chlordiazePOXIDE HCL 25 MG CAP PO SCH ×3 (05:45→21:35)
[2020-09-20] MEDS: FAMOTIDINE 20 MG TAB PO SCH (09:05)
[2020-09-20] MEDS: GABAPENTIN 100 MG CAP PO SCH ×2 (09:05→21:35)
[2020-09-20] MEDS: CALCIUM W/VIT D (600MG/400IU) TAB PO SCH ×2 (09:05→17:22)
[2020-09-20] MEDS: cefTRIAXone 1GM/50ML D5W 50 ML IV SCH (09:05)
[2020-09-20] MEDS: ASPirin 81 mg TAB PO SCH (09:06)
[2020-09-20] MEDS: SERTRALINE HCL 50 MG TAB PO SCH (09:06)
[2020-09-20 09:16] VITALS: BP 144/72
[2020-09-20] MEDS: LISINOPRIL 10 MG TAB PO SCH (10:14)
[2020-09-20] MEDS: ATENOLOL 25 MG TAB PO SCH (10:14)
[2020-09-20 11:30] VITALS: BP 144/72
[2020-09-20 12:51] VITALS: BP 159/94
[2020-09-20] MEDS: FOLIC ACID 1 MG, MULTIPLE VITAMIN 10 ML, MAGNESIUM SULF SDV 50% 8 MEQ, THIAMINE INJ 100... INJ SCH ×5 (13:41)
[2020-09-20] MEDS: MORPHINE SULFATE INJECTION 2 MG/ML SYRG IV PRN (13:41)
[2020-09-20 17:39] VITALS: BP 160/65
[2020-09-20] MEDS: HYDROcodone-ACET 5/325MG TAB PO PRN (18:41)
[2020-09-20 22:00] VITALS: BP 155/86
[2020-09-21 05:00] VITALS: BP 148/75
[2020-09-21] MEDS: chlordiazePOXIDE HCL 25 MG CAP PO SCH (05:30)
[2020-09-21 08:46] VITALS: BP 140/74
[2020-09-21] MEDS: CALCIUM W/VIT D (600MG/400IU) TAB PO SCH ×2 (08:54→17:36)
[2020-09-21] MEDS: ASPirin 81 mg TAB PO SCH (08:55)
[2020-09-21] MEDS: GABAPENTIN 100 MG CAP PO SCH (08:55)
[2020-09-21] MEDS: cefTRIAXone 1GM/50ML D5W 50 ML IV SCH (08:55)
[2020-09-21] MEDS: LISINOPRIL 10 MG TAB PO SCH (08:57)
[2020-09-21] MEDS: SERTRALINE HCL 50 MG TAB PO SCH (08:57)
[2020-09-21] MEDS: ATENOLOL 25 MG TAB PO SCH (08:57)
[2020-09-21] MEDS: MORPHINE SULFATE INJECTION 2 MG/ML SYRG IV PRN (09:19)
[2020-09-21 12:42] VITALS: BP 119/66
[2020-09-21] MEDS: FOLIC ACID 1 MG, MULTIPLE VITAMIN 10 ML, MAGNESIUM SULF SDV 50% 8 MEQ, THIAMINE INJ 100... INJ SCH ×5 (14:54)
[2020-09-21 16:55] VITALS: BP 133/82
[2020-09-21] MEDS: HYDROcodone-ACET 5/325MG TAB PO PRN (18:53)
[2020-09-21 20:00] VITALS: BP 144/83
[2020-09-21 21:30] VITALS: BP 167/86
[2020-09-22] MEDS: HYDROcodone-ACET 5/325MG TAB PO PRN (04:47)
[2020-09-22 07:46] LABS: Hemoglobin 11.3 g/dL (12.2-16.2); Neutrophils # (auto) 5.3 10 ^3/uL (1.6-8.6); Nucleated Red Blood Cells % 0.1 %; Red Blood Cells 3.31 10^6/uL (4.0-5.20); Red Cell Distribution Width 13.6 % (11.8-14.3)
[2020-09-22 07:48] LABS: Basophils # (auto) 0 10 ^3/uL (0-0.2); Basophils % (auto) 0.6 % (0.0-2.0); Eosinophils # (auto) 0.5 10 ^3/uL (0-0.8); Eosinophils % (auto) 6.2 % (0.0-7.0); Hematocrit 33.4 % (36.0-46.0); Lymphocytes # (auto) 1.6 10 ^3/uL (0.4-5.4); Mean Corpuscular Hgb Conc. 33.7 g/dL (32.0-36.0); Monocytes # (auto) 0.8 10 ^3/uL (0-1.3); Neutrophils % (auto) 64.2 % (37.0-80.0); White Blood Cell 8.2 10^3/uL (4.4-10.8)
[2020-09-22] MEDS: SERTRALINE HCL 50 MG TAB PO SCH (07:57)
[2020-09-22] MEDS: CALCIUM W/VIT D (600MG/400IU) TAB PO SCH ×2 (07:57→17:34)
[2020-09-22] MEDS: ASPirin 81 mg TAB PO SCH (07:57)
[2020-09-22] MEDS: ATENOLOL 25 MG TAB PO SCH (07:58)
[2020-09-22] MEDS: cefTRIAXone 1GM/50ML D5W 50 ML IV SCH (07:59)
[2020-09-22] MEDS: LISINOPRIL 10 MG TAB PO SCH (07:59)
[2020-09-22 08:03] LABS: Potassium 4.1 mmol/L (3.5-5.1)
[2020-09-22 08:16] LABS: Albumin 2.5 g/dL (3.4-5.0); BUN/Creatinine Ratio 22.6; Bilirubin, Total 0.3 mg/dL (0.2-1.0); Calcium 6.9 mg/dL (8.5-10.1); Magnesium 2.3 mg/dL (1.6-2.6); Total Protein 5.2 g/dL (6.4-8.2)
[2020-09-22 09:00] VITALS: BP 160/77
[2020-09-22 13:00] VITALS: BP 140/97
[2020-09-22] MEDS: FOLIC ACID 1 MG, MULTIPLE VITAMIN 10 ML, MAGNESIUM SULF SDV 50% 8 MEQ, THIAMINE INJ 100... INJ SCH ×5 (13:09)
[2020-09-22] MEDS ORDERED: ACETAMINOPHEN 325 MG TAB PO PRN (14:15)
[2020-09-22 17:00] VITALS: BP 161/73
[2020-09-22 19:11] VITALS: BP 148/78
== END 2020-09-22 17:25 | DRG 689 ==
LOC: ER 07:02 → EDBD 07:02 → TELE 10:08 → TELE-WESTW 17:37
PROVIDERS: ADMIT Nurse Practitioner Acute Care; ATTEND Internal Medicine
PROC: 05HC33Z Insertion of Infusion Device into Left Basilic Vein, Percutaneous Approach (ICD-10-PCS; principal; 2020-09-19)
PROC: B54NZZA Ultrasonography of Left Upper Extremity Veins, Guidance (ICD-10-PCS; 2020-09-19)
DX: N30.90 Cystitis, unspecified without hematuria (principal); J96.01 Acute respiratory failure with hypoxia; G92 Toxic encephalopathy; G62.9 Polyneuropathy, unspecified; J44.9 Chronic obstructive pulmonary disease, unspecified; F32.9 Major depressive disorder, single episode, unspecified; F41.9 Anxiety disorder, unspecified; E11.9 Type 2 diabetes mellitus without complications; F17.210 Nicotine dependence, cigarettes, uncomplicated; B96.20 Unspecified Escherichia coli [E. coli] as the cause of diseases classified elsewhere; I11.0 Hypertensive heart disease with heart failure; R29.6 Repeated falls; Z20.822 Contact with and (suspected) exposure to COVID-19; I50.9 Heart failure, unspecified; Z79.82 Long term (current) use of aspirin; Z79.899 Other long term (current) drug therapy; Z80.9 Family history of malignant neoplasm, unspecified; Z82.49 Family history of ischemic heart disease and other diseases of the circulatory system; Z90.710 Acquired absence of both cervix and uterus; Z91.81 History of falling; Z90.49 Acquired absence of other specified parts of digestive tract; Z71.6 Tobacco abuse counseling
CPT/HCPCS: 36415; 51702; 70450; 71250; 72192; 73502; 80053; 80307; 80320; 81001; 83605; 83735; 83880; 84443; 84484; 85025; 87040; 87081; 87086; 87088; 87186; 87426; 93005; 96365; 96367; 96375; 97110; 97116; 97530; G0378; J0696; J1885

== ENCOUNTER → 2021-11-11 | Outpatient (CLI) | payer OTHER ==
[2021-11-11 09:18] LABS: Basophils # (auto) 0.1 10 ^3/uL (0-0.2); Basophils % (auto) 0.8 % (0.0-2.0); Eosinophils # (auto) 0.2 10 ^3/uL (0-0.8); Eosinophils % (auto) 2.1 % (0.0-7.0); Hematocrit 37.3 % (36.0-46.0); Hemoglobin 11.7 g/dL (12.2-16.2); Lymphocytes # (auto) 1.5 10 ^3/uL (0.4-5.4); Lymphocytes % (auto) 18.9 % (10.0-50.0); Mean Corpuscular Hemoglobin 28.4 pg (28.0-32.0); Mean Corpuscular Hgb Conc. 31.5 g/dL (32.0-36.0); Mean Corpuscular Volume 90.1 fL (80.0-100.0); Monocytes # (auto) 0.5 10 ^3/uL (0-1.3); Monocytes % (auto) 5.9 % (0.0-12.0); Neutrophils # (auto) 5.8 10 ^3/uL (1.6-8.6); Neutrophils % (auto) 72.3 % (37.0-80.0); Nucleated Red Blood Cells % 0.1 %; Red Blood Cells 4.14 10^6/uL (4.0-5.20); Red Cell Distribution Width 15.9 % (11.8-14.3)
[2021-11-11 09:39] LABS: Albumin 3.7 g/dL (3.4-5.0); Calcium 9.3 mg/dL (8.5-10.1); Potassium 4.5 mmol/L (3.5-5.1)
[2021-11-11 09:45] LABS: BUN/Creatinine Ratio 13.5; Bilirubin, Total 0.5 mg/dL (0.2-1.0); Total Protein 7.5 g/dL (6.4-8.2)
[2021-11-11 10:15] LABS: Free T3 2.75 pg/mL (2.3-4.2)
[2021-11-11 10:50] LABS: Free T4 (Free Thyroxine) 1.15 ng/dL (0.89-1.76)
== END | disposition home or self-care (01) ==
LOC: LAB 08:39
PROVIDERS: ATTEND Internal Medicine
DX: Z00.00 Encounter for general adult medical examination without abnormal findings (principal); Z12.11 Encounter for screening for malignant neoplasm of colon; E55.9 Vitamin D deficiency, unspecified; I10 Essential (primary) hypertension
CPT/HCPCS: 36415; 80053; 80061; 82306; 84439; 84443; 84481; 85025

== ENCOUNTER 2022-07-04 22:52 | Inpatient (IN) | payer OTHER ==
[~2022-07-04] VITALS: Ht 162.6 cm; Wt 78.5 kg
[2022-07-05 00:03] LABS: Basophils # (auto) 0 10 ^3/uL (0-0.2); Basophils % (auto) 0.3 % (0.0-2.0); Eosinophils # (auto) 0 10 ^3/uL (0-0.8); Eosinophils % (auto) 0.1 % (0.0-7.0); Hematocrit 33.9 % (36.0-46.0); Hemoglobin 10.8 g/dL (12.2-16.2); Lymphocytes # (auto) 0.3 10 ^3/uL (0.4-5.4); Lymphocytes % (auto) 4.3 % (10.0-50.0); Mean Corpuscular Hemoglobin 28.5 pg (28.0-32.0); Mean Corpuscular Hgb Conc. 31.9 g/dL (32.0-36.0); Mean Corpuscular Volume 89.4 fL (80.0-100.0); Monocytes # (auto) 0.1 10 ^3/uL (0-1.3); Neutrophils % (auto) 94.3 % (37.0-80.0); Red Blood Cells 3.79 10^6/uL (4.0-5.20); Red Cell Distribution Width 16.2 % (11.8-14.3); White Blood Cell 7.5 10^3/uL (4.4-10.8)
[2022-07-05 00:25] LABS: Albumin 2.9 g/dL (3.4-5.0); BUN/Creatinine Ratio 13.9; Calcium 8.1 mg/dL (8.5-10.1); Potassium 3.7 mmol/L (3.5-5.1)
[2022-07-05 00:27] LABS: Bilirubin, Total 0.6 mg/dL (0.2-1.0); Total Protein 6.6 g/dL (6.4-8.2)
[2022-07-05 00:27] LABS: Lactic Acid w/Reflex 2.4 mmol/L (0.4-2.0)
[2022-07-05] MEDS ORDERED: SODIUM CHLORIDE 0.9% 1,000 ML IV ONE (01:45)
[2022-07-05 02:56] LABS: Urine Bacteria FEW /hpf (None Seen); Urine WBC 1810 /hpf (0 - 5); Urine WBC Clumps PRESENT /hpf (None Seen)
[2022-07-05] MEDS ORDERED: SODIUM CHLORIDE 0.9% 500 ML IV ONE (03:00)
[2022-07-05] MEDS ORDERED: ACETAMINOPHEN 500 MG TAB PO ONE (03:00)
[2022-07-05] MEDS ORDERED: PIPERACILLIN-TAZOB 3.375GM 100 ML IV ONE (03:00)
[2022-07-05 03:05] LABS: Urine Blood 1+ /uL (Negative); Urine Specific Gravity 1.017 (1.001-1.035)
[2022-07-05] MEDS ORDERED: HEPARIN SODIUM (PORCINE) 5000 UNITS/ML 1ML VIAL IV ONE (03:30)
[2022-07-05] MEDS ORDERED: NOREPINEPHRINE 8 MG/250ML KIT 250 ML IV ONE (03:48)
[2022-07-05] MEDS ORDERED: ONDANSETRON HCL 4 MG/2 ML VIAL IV PRN (04:00)
[2022-07-05] MEDS ORDERED: SOD CHL 0.45% 1,000 ML IV SCH (04:00)
[2022-07-05] MEDS ORDERED: HYDROcodone-ACET 5/325MG TAB PO PRN (04:00)
[2022-07-05] MEDS ORDERED: DEXTROSE (50%) 50ML SYRG IV PRN (04:00)
[2022-07-05] MEDS ORDERED: ALBUTEROL SULF 2.5 MG/0.5ML(0.5%) NEB SOLN NEB PRN (04:00)
[2022-07-05] MEDS ORDERED: DOCUSATE SOD 100 MG CAP PO PRN (04:00)
[2022-07-05] MEDS ORDERED: ALBUMIN 25% 100 ML IV ONE (04:00)
[2022-07-05] MEDS: NOREPINEPHRINE 8 MG/250ML KIT 250 ML IV SCH ×2 (04:07→22:03)
[2022-07-05 04:56] LABS: Basophils # (auto) 0.1 10 ^3/uL (0-0.2); Basophils % (auto) 0.3 % (0.0-2.0); Eosinophils # (auto) 0 10 ^3/uL (0-0.8); Hematocrit 32.7 % (36.0-46.0); Hemoglobin 10.2 g/dL (12.2-16.2); Lymphocytes # (auto) 0.9 10 ^3/uL (0.4-5.4); Lymphocytes % (auto) 4.2 % (10.0-50.0); Mean Corpuscular Hemoglobin 28.6 pg (28.0-32.0); Mean Corpuscular Hgb Conc. 31.1 g/dL (32.0-36.0); Mean Corpuscular Volume 91.8 fL (80.0-100.0); Monocytes # (auto) 0.9 10 ^3/uL (0-1.3); Monocytes % (auto) 4.4 % (0.0-12.0); Neutrophils # (auto) 19.6 10 ^3/uL (1.6-8.6); Neutrophils % (auto) 91.1 % (37.0-80.0); Nucleated Red Blood Cells % 0.1 %; Red Blood Cells 3.57 10^6/uL (4.0-5.20); Red Cell Distribution Width 16.3 % (11.8-14.3); White Blood Cell 21.5 10^3/uL (4.4-10.8)
[2022-07-05 05:28] LABS: Albumin 2.8 g/dL (3.4-5.0); Calcium 7.8 mg/dL (8.5-10.1)
[2022-07-05 05:30] LABS: BUN/Creatinine Ratio 13.2
[2022-07-05] MEDS ORDERED: NITROGLYCERIN 0.4 MG SL TAB SL PRN (05:30)
[2022-07-05] MEDS ORDERED: MORPHINE SULFATE INJ 2 MG/ml SYRG IV PRN (05:30)
[2022-07-05 05:33] LABS: Bilirubin, Total 0.7 mg/dL (0.2-1.0); Total Protein 5.8 g/dL (6.4-8.2)
[2022-07-05] MEDS: PIPERACILLIN-TAZOB 2.25GM 50 ML IV SCH ×3 (06:00→22:31)
[2022-07-05] MEDS: ACCU-CHEK COMFORT CURVE STRIP VI SCH ×4 (07:03→22:18)
[2022-07-05] MEDS: InsuLIN REG 1unit/0.01ml Soln (100units/ml) SC SCH ×4 (07:42→22:00)
[2022-07-05] MEDS ORDERED: SODIUM CHLORIDE 0.9% 2,100 ML IV ONE (10:30)
[2022-07-05] MEDS: FAMOTIDINE (10MG/ML) 2ML VL IV SCH (11:16)
[2022-07-05] MEDS: ASPirin 81 mg TAB PO SCH (11:16)
[2022-07-05 11:26] LABS: INR 1.06 (0.9-1.15); Partial Thromboplastin Time 34.2 sec (24.6-33.4)
[2022-07-05] MEDS ORDERED: LIDOCAINE 1% (LOCAL ANESTH.) PF 5ml SDV ID ONE (17:15)
[2022-07-05 17:38] VITALS: BP 101/59
[2022-07-05] MEDS: SOD CHL 0.45% 1,000 ML IV SCH ×2 (18:00→18:32)
[2022-07-05] MEDS: SODIUM CHLOR 0.9% PF (SALINE LOCK) 10ML VIAL/SYR IV SCH (22:02)
[2022-07-05] MEDS: ATORVASTATIN 20 MG TAB PO SCH (22:31)
[2022-07-05] MEDS: ACETAMINOPHEN 325 MG TAB PO PRN (22:32)
[2022-07-06] MEDS: SOD CHL 0.45% 1,000 ML IV SCH ×3 (02:30→21:08)
[2022-07-06 05:42] LABS: Basophils # (auto) 0.1 10 ^3/uL (0-0.2); Basophils % (auto) 0.6 % (0.0-2.0); Eosinophils # (auto) 0.2 10 ^3/uL (0-0.8); Eosinophils % (auto) 1.3 % (0.0-7.0); Hematocrit 29.1 % (36.0-46.0); Hemoglobin 9.4 g/dL (12.2-16.2); Lymphocytes # (auto) 1.2 10 ^3/uL (0.4-5.4); Lymphocytes % (auto) 8.2 % (10.0-50.0); Mean Corpuscular Hemoglobin 28.3 pg (28.0-32.0); Mean Corpuscular Hgb Conc. 32.2 g/dL (32.0-36.0); Monocytes # (auto) 1.3 10 ^3/uL (0-1.3); Monocytes % (auto) 8.7 % (0.0-12.0); Neutrophils % (auto) 81.2 % (37.0-80.0); Nucleated Red Blood Cells % 0.1 %; Red Blood Cells 3.31 10^6/uL (4.0-5.20); Red Cell Distribution Width 15.6 % (11.8-14.3); White Blood Cell 14.8 10^3/uL (4.4-10.8)
[2022-07-06 05:58] LABS: Albumin 2.5 g/dL (3.4-5.0); BUN/Creatinine Ratio 15.6
[2022-07-06 06:09] LABS: Bilirubin, Total 0.4 mg/dL (0.2-1.0); Total Protein 6.3 g/dL (6.4-8.2)
[2022-07-06] MEDS: InsuLIN REG 1unit/0.01ml Soln (100units/ml) SC SCH ×4 (06:15→22:00)
[2022-07-06] MEDS: ACCU-CHEK COMFORT CURVE STRIP VI SCH ×4 (06:15→22:06)
[2022-07-06] MEDS: PIPERACILLIN-TAZOB 2.25GM 50 ML IV SCH ×3 (06:19→22:06)
[2022-07-06] MEDS: ASPirin 81 mg TAB PO SCH (10:10)
[2022-07-06] MEDS: SODIUM CHLOR 0.9% PF (SALINE LOCK) 10ML VIAL/SYR IV SCH ×2 (10:10→21:59)
[2022-07-06] MEDS: FAMOTIDINE (10MG/ML) 2ML VL IV SCH (10:10)
[2022-07-06] MEDS: ACETAMINOPHEN 325 MG TAB PO PRN (20:27)
[2022-07-06] MEDS: ATORVASTATIN 20 MG TAB PO SCH (22:05)
[2022-07-07] MEDS: SOD CHL 0.45% 1,000 ML IV SCH ×2 (02:30→10:05)
[2022-07-07] MEDS: NOREPINEPHRINE 8 MG/250ML KIT 250 ML IV SCH (03:45)
[2022-07-07] MEDS: PIPERACILLIN-TAZOB 2.25GM 50 ML IV SCH ×3 (06:00→22:09)
[2022-07-07 06:20] LABS: Basophils # (auto) 0.1 10 ^3/uL (0-0.2); Basophils % (auto) 0.5 % (0.0-2.0); Eosinophils # (auto) 0.2 10 ^3/uL (0-0.8); Eosinophils % (auto) 1.6 % (0.0-7.0); Hematocrit 29.8 % (36.0-46.0); Hemoglobin 9.7 g/dL (12.2-16.2); Lymphocytes # (auto) 1.1 10 ^3/uL (0.4-5.4); Lymphocytes % (auto) 9.6 % (10.0-50.0); Mean Corpuscular Hemoglobin 28.3 pg (28.0-32.0); Mean Corpuscular Hgb Conc. 32.6 g/dL (32.0-36.0); Mean Corpuscular Volume 87.1 fL (80.0-100.0); Monocytes # (auto) 0.9 10 ^3/uL (0-1.3); Monocytes % (auto) 7.6 % (0.0-12.0); Neutrophils # (auto) 9.2 10 ^3/uL (1.6-8.6); Neutrophils % (auto) 80.7 % (37.0-80.0); Nucleated Red Blood Cells % 0.1 %; Red Blood Cells 3.42 10^6/uL (4.0-5.20); Red Cell Distribution Width 15.6 % (11.8-14.3); White Blood Cell 11.4 10^3/uL (4.4-10.8)
[2022-07-07] MEDS: ACCU-CHEK COMFORT CURVE STRIP VI SCH ×4 (06:35→22:12)
[2022-07-07] MEDS: InsuLIN REG 1unit/0.01ml Soln (100units/ml) SC SCH ×4 (06:35→22:29)
[2022-07-07 06:38] LABS: Potassium 4.3 mmol/L (3.5-5.1)
[2022-07-07 06:45] LABS: Albumin 2.5 g/dL (3.4-5.0); BUN/Creatinine Ratio 15.7; Calcium 8.3 mg/dL (8.5-10.1)
[2022-07-07 06:48] LABS: Bilirubin, Total 0.4 mg/dL (0.2-1.0); Total Protein 5.7 g/dL (6.4-8.2)
[2022-07-07] MEDS: SODIUM CHLOR 0.9% PF (SALINE LOCK) 10ML VIAL/SYR IV SCH ×2 (09:56→22:29)
[2022-07-07] MEDS: ASPirin 81 mg TAB PO SCH (10:05)
[2022-07-07] MEDS: FAMOTIDINE (10MG/ML) 2ML VL IV SCH (10:05)
[2022-07-07 21:35] VITALS: BP 140/64
[2022-07-07] MEDS: ATORVASTATIN 20 MG TAB PO SCH (22:09)
[2022-07-07 22:21] VITALS: BP 140/64
[2022-07-07] MEDS ORDERED: ALBU108A5 IN (23:01)
[2022-07-07] MEDS ORDERED: ACET-1156 PO (23:01)
[2022-07-07] MEDS ORDERED: OME20T PO (23:03)
[2022-07-07] MEDS ORDERED: TRAZ-181 PO (23:08)
[2022-07-07] MEDS ORDERED: RISP0.5T17 PO (23:08)
[2022-07-07] MEDS ORDERED: CHOL50007 PO (23:08)
[2022-07-08 06:09] LABS: Basophils # (auto) 0.1 10 ^3/uL (0-0.2); Basophils % (auto) 0.8 % (0.0-2.0); Eosinophils # (auto) 0.2 10 ^3/uL (0-0.8); Eosinophils % (auto) 2.4 % (0.0-7.0); Hematocrit 28.5 % (36.0-46.0); Hemoglobin 9.4 g/dL (12.2-16.2); Lymphocytes # (auto) 1.4 10 ^3/uL (0.4-5.4); Mean Corpuscular Hemoglobin 28.4 pg (28.0-32.0); Monocytes # (auto) 0.8 10 ^3/uL (0-1.3); Monocytes % (auto) 8.7 % (0.0-12.0); Neutrophils # (auto) 6.3 10 ^3/uL (1.6-8.6); Neutrophils % (auto) 72.1 % (37.0-80.0); Red Blood Cells 3.32 10^6/uL (4.0-5.20); Red Cell Distribution Width 15.6 % (11.8-14.3); White Blood Cell 8.8 10^3/uL (4.4-10.8)
[2022-07-08 06:29] LABS: Albumin 2.4 g/dL (3.4-5.0); Bilirubin, Total 0.3 mg/dL (0.2-1.0); Calcium 8.3 mg/dL (8.5-10.1); Magnesium 1.6 mg/dL (1.6-2.6); Potassium 4.3 mmol/L (3.5-5.1); Total Protein 5.4 g/dL (6.4-8.2)
[2022-07-08] MEDS: PIPERACILLIN-TAZOB 2.25GM 50 ML IV SCH ×2 (06:58→14:17)
[2022-07-08] MEDS: InsuLIN REG 1unit/0.01ml Soln (100units/ml) SC SCH ×3 (07:00→17:00)
[2022-07-08] MEDS: ACCU-CHEK COMFORT CURVE STRIP VI SCH ×3 (07:01→17:09)
[2022-07-08 08:00] VITALS: BP 156/83
[2022-07-08 09:15] VITALS: BP 156/83
[2022-07-08] MEDS: SODIUM CHLOR 0.9% PF (SALINE LOCK) 10ML VIAL/SYR IV SCH (10:28)
[2022-07-08] MEDS: FAMOTIDINE (10MG/ML) 2ML VL IV SCH (10:28)
[2022-07-08] MEDS: ASPirin 81 mg TAB PO SCH (10:29)
[2022-07-08 12:49] VITALS: BP 149/67
[2022-07-08 16:16] VITALS: BP 146/71
[2022-07-08] MEDS ORDERED: CIPR-173 PO (17:43)
[2022-07-08] MEDS ORDERED: CIPROFLOXACIN HCL 500 MG TAB PO ONE (17:45)
[2022-07-08 18:22] VITALS: BP 145/65
== END 2022-07-08 19:41 | disposition home or self-care (01) | DRG 871 ==
LOC: EDBD 22:52 → ER 22:52 → TELE 07-05 05:19 → EAST 07-07 21:35
PROVIDERS: ADMIT Nurse Practitioner Family; ATTEND Internal Medicine
DX: A41.9 Sepsis, unspecified organism (principal); I21.4 Non-ST elevation (NSTEMI) myocardial infarction; R65.21 Severe sepsis with septic shock; M48.56XA Collapsed vertebra, not elsewhere classified, lumbar region, initial encounter for fracture; N17.9 Acute kidney failure, unspecified; N39.0 Urinary tract infection, site not specified; E11.9 Type 2 diabetes mellitus without complications; Z20.822 Contact with and (suspected) exposure to COVID-19; F17.210 Nicotine dependence, cigarettes, uncomplicated; I11.0 Hypertensive heart disease with heart failure; I50.9 Heart failure, unspecified; J44.9 Chronic obstructive pulmonary disease, unspecified; K40.90 Unilateral inguinal hernia, without obstruction or gangrene, not specified as recurrent; K44.9 Diaphragmatic hernia without obstruction or gangrene; N26.1 Atrophy of kidney (terminal); R09.02 Hypoxemia; R32 Unspecified urinary incontinence; Z80.9 Family history of malignant neoplasm, unspecified; Z82.49 Family history of ischemic heart disease and other diseases of the circulatory system; Z90.710 Acquired absence of both cervix and uterus
CPT/HCPCS: 36415; 36569; 36600; 71045; 71250; 74176; 80053; 80061; 81001; 82306; 82805; 82962; 83036; 83605; 83735; 83880; 84484; 85025; 85610; 85730; 87040; 87077; 87086; 87186; 87426; 87804; 93005; 93306; 94640; 96361; 96365; 96375; G0378; J1815; J2543; J3490

== ENCOUNTER 2023-03-09 10:48 | Inpatient (IN) | payer OTHER ==
[~2023-03-09] VITALS: Ht 152.4 cm; Wt 70.7 kg
[~2023-03-09 10:48] MED LIST changes: +ALBU108A5 IN; -ALPR0.254 PO; -AZIT250T8 PO; -CALC600T80 PO; -CHL4PW PO; +CIPR-173 PO; -CYAN100023 PO; -DICL1GEL26 TD; -FOLI1TAB6 PO; -GABA100C9 PO; -LISI-716 PO; +LISI10TA34 PO; +RISP0.5T17 PO; -TEMA15CA2 PO
[2023-03-09] MEDS ORDERED: methylPREDNISolone SOD SUCC 125 MG/2 ML VL IV ONE (11:00)
[2023-03-09 11:08] VITALS: O2SAT 98
[2023-03-09 11:48] LABS: Basophils # (auto) 0.1 10 ^3/uL (0-0.2); Basophils % (auto) 0.8 % (0.0-2.0); Eosinophils # (auto) 0.1 10 ^3/uL (0-0.8); Eosinophils % (auto) 0.7 % (0.0-7.0); Hematocrit 40.5 % (36.0-46.0); Lymphocytes % (auto) 10.3 % (10.0-50.0); Mean Corpuscular Hemoglobin 27.4 pg (28.0-32.0); Mean Corpuscular Hgb Conc. 32.1 g/dL (32.0-36.0); Mean Corpuscular Volume 85.5 fL (80.0-100.0); Monocytes # (auto) 0.5 10 ^3/uL (0-1.3); Monocytes % (auto) 4.9 % (0.0-12.0); Neutrophils % (auto) 83.3 % (37.0-80.0); Red Blood Cells 4.73 10^6/uL (4.0-5.20); Red Cell Distribution Width 16.5 % (11.8-14.3); White Blood Cell 9.6 10^3/uL (4.4-10.8)
[2023-03-09 12:08] LABS: Albumin 4.9 g/dL (3.2-4.8); Alkaline Phosphatase 95 U/L (46-116); Anion Gap 8 (5-15); Aspartate Aminotransferase 25 U/L (13-40); Bilirubin, Total 0.5 mg/dL (0.2-1.0); Calcium 9.4 mg/dL (8.7-10.4); Carbon Dioxide 27 mmol/L (20-30); Chloride 100 mmol/L (98-107); Glucose 107 mg/dL (74-106); Magnesium 1.9 mg/dL (1.6-2.6); Sodium 135 mmol/L (136-145); Total Protein 7.5 g/dL (5.7-8.2)
[2023-03-09] MEDS ORDERED: IOHEXOL 350 MG/ML 100ML IJ ONE (12:56)
[2023-03-09] MEDS ORDERED: cloNIDine HCL 0.1 MG TAB PO ONE (13:15)
[2023-03-09 13:26] LABS: Rapid Influenza A Negative (Negative); Rapid Influenza B Negative (Negative)
[2023-03-09 13:27] LABS: COVID19 ANTIGEN SOFIA FIA NEGATIVE (NEGATIVE)
[2023-03-09] MEDS ORDERED: HEPARIN DRIP/D5W 100UNITS/ML 250 ML IV SCH ×2 (15:00→15:45)
[2023-03-09] MEDS ORDERED: HEPARIN SODIUM (PORCINE) 5000 UNITS/ML 1ML VIAL IV ONE (15:00)
[2023-03-09 15:07] LABS: BUN/Creatinine Ratio 9.6 (10.0-20.0); Blood Urea Nitrogen 11 mg/dL (9-23); Potassium 4.3 mmol/L (3.5-5.1)
[2023-03-09 15:11] LABS: Alanine Aminotransferase < 9 U/L (7-40)
[2023-03-09 15:17] LABS: INR 1.06 (0.9-1.15); Partial Thromboplastin Time 25.9 SEC (24.5-34.5); Prothrombin Time 11.1 sec (9.3-11.8)
[2023-03-09 15:30] LABS: Basophils # (auto) 0 10 ^3/uL (0-0.2); Basophils % (auto) 0.3 % (0.0-2.0); Eosinophils # (auto) 0 10 ^3/uL (0-0.8); Hematocrit 37.1 % (36.0-46.0); Lymphocytes # (auto) 0.4 10 ^3/uL (0.4-5.4); Lymphocytes % (auto) 3.9 % (10.0-50.0); Mean Corpuscular Hemoglobin 27.7 pg (28.0-32.0); Mean Corpuscular Hgb Conc. 32.3 g/dL (32.0-36.0); Mean Corpuscular Volume 85.8 fL (80.0-100.0); Monocytes # (auto) 0.1 10 ^3/uL (0-1.3); Monocytes % (auto) 1.1 % (0.0-12.0); Neutrophils # (auto) 8.7 10 ^3/uL (1.6-8.6); Neutrophils % (auto) 94.7 % (37.0-80.0); Nucleated Red Blood Cells % 0.1 %; Red Blood Cells 4.33 10^6/uL (4.0-5.20); Red Cell Distribution Width 15.8 % (11.8-14.3); White Blood Cell 9.2 10^3/uL (4.4-10.8)
[2023-03-09] MEDS ORDERED: ONDANSETRON HCL 4 MG/2 ML VIAL IV PRN (15:45)
[2023-03-09] MEDS ORDERED: DOCUSATE SOD 100 MG CAP PO PRN (15:45)
[2023-03-09] MEDS ORDERED: MORPHINE SULFATE INJ 2 MG/ml SYRG IV PRN (15:45)
[2023-03-09] MEDS ORDERED: SODIUM CHLORIDE 0.9% 500 ML IV ONE (16:30)
[2023-03-09] MEDS ORDERED: DEXTROSE (50%) 50ML SYRG IV PRN (16:30)
[2023-03-09 16:41] VITALS: BP 154/87; PULSE 65; RESP 19; O2SAT 96
[2023-03-09] MEDS: InsuLIN REG 1unit/0.01ml Soln (100units/ml) SC SCH ×2 (17:00→22:08)
[2023-03-09] MEDS: ACCU-CHEK COMFORT CURVE STRIP VI SCH ×2 (17:26→22:07)
[2023-03-09 18:00] VITALS: PULSE 56; RESP 20; O2SAT 96
[2023-03-09 18:10] VITALS: PULSE 55; RESP 18; O2SAT 100
[2023-03-09] MEDS: ALBUTEROL MEDNEB 2.5 mg/3ml NEB NEB PRN (18:24)
[2023-03-09] MEDS: IPRATROPIUM BROM 0.5 MG/2.5ML INH SOL NEB SCH (18:24)
[2023-03-09 19:20] VITALS: PULSE 53; RESP 18; O2SAT 96
[2023-03-09] MEDS ORDERED: TEMAZEPAM 15 MG CAP PO ONE (21:00)
[2023-03-09] MEDS: risperiDONE 1 MG TAB PO SCH (22:06)
[2023-03-09] MEDS: PANTOPRAZOLE 40 MG TAB PO SCH (22:07)
[2023-03-09] MEDS: methylPREDNISolone SOD SUCC 40 MG/ML VL IV SCH (22:07)
[2023-03-09 22:11] LABS: Urine Bacteria FEW /hpf (None Seen); Urine Blood Negative /uL (Negative); Urine Clarity HAZY (Clear); Urine Color Yellow (Yellow); Urine Mucus FEW (None Seen); Urine Protein, UAD TRACE (Negative); Urine Urobilinogen Normal (Negative); Urine WBC 36 /hpf (0 - 5); Urine pH 6.5 (5.0-8.0)
[2023-03-09 22:23] LABS: Creatinine, Urine 99.95 mg/dL (30.0-125.0)
[2023-03-09 22:47] LABS: INR 1.14 (0.9-1.15); Prothrombin Time 11.9 sec (9.3-11.8)
[2023-03-09 22:55] LABS: Partial Thromboplastin Time 107.8 SEC (24.5-34.5)
[2023-03-10] VITALS (13 sets, daily range): BP systolic 129–132; BP diastolic 67–72; PULSE 8–74; RESP 16–18; TEMP 97.9; O2SAT 95–99
[2023-03-10] MEDS: ALBUTEROL MEDNEB 2.5 mg/3ml NEB NEB PRN ×3 (00:21→18:16)
[2023-03-10] MEDS: IPRATROPIUM BROM 0.5 MG/2.5ML INH SOL NEB SCH ×4 (00:22→18:16)
[2023-03-10 05:44] LABS: Basophils # (auto) 0 10 ^3/uL (0-0.2); Basophils % (auto) 0.1 % (0.0-2.0); Eosinophils # (auto) 0 10 ^3/uL (0-0.8); Eosinophils % (auto) 0.4 % (0.0-7.0); Hematocrit 36.4 % (36.0-46.0); Hemoglobin 11.6 g/dL (12.2-16.2); Lymphocytes # (auto) 0.6 10 ^3/uL (0.4-5.4); Lymphocytes % (auto) 9.1 % (10.0-50.0); Mean Corpuscular Hemoglobin 27.6 pg (28.0-32.0); Mean Corpuscular Volume 86.2 fL (80.0-100.0); Monocytes # (auto) 0.1 10 ^3/uL (0-1.3); Monocytes % (auto) 1.5 % (0.0-12.0); Neutrophils # (auto) 5.7 10 ^3/uL (1.6-8.6); Neutrophils % (auto) 88.9 % (37.0-80.0); Nucleated Red Blood Cells % 0.1 %; Red Blood Cells 4.22 10^6/uL (4.0-5.20); Red Cell Distribution Width 15.9 % (11.8-14.3); White Blood Cell 6.5 10^3/uL (4.4-10.8)
[2023-03-10 06:07] LABS: Alkaline Phosphatase 74 U/L (46-116); Aspartate Aminotransferase 14 U/L (13-40); Blood Urea Nitrogen 10 mg/dL (9-23); Calcium 9.2 mg/dL (8.5-10.1); Chloride 99 mmol/L (98-107); Glucose 133 mg/dL (74-106); Sodium 134 mmol/L (136-145)
[2023-03-10 06:08] LABS: Albumin 4.3 g/dL (3.2-4.8); Bilirubin, Total 0.3 mg/dL (0.2-1.0); Total Protein 6.6 g/dL (5.7-8.2)
[2023-03-10 06:09] LABS: INR 1.14 (0.9-1.15); Prothrombin Time 11.9 sec (9.3-11.8)
[2023-03-10 06:14] LABS: Partial Thromboplastin Time 86.3 SEC (24.5-34.5)
[2023-03-10] MEDS: methylPREDNISolone SOD SUCC 40 MG/ML VL IV SCH (06:14)
[2023-03-10] MEDS: ACCU-CHEK COMFORT CURVE STRIP VI SCH ×4 (06:18→21:45)
[2023-03-10] MEDS: InsuLIN REG 1unit/0.01ml Soln (100units/ml) SC SCH ×4 (06:18→22:10)
[2023-03-10 06:22] LABS: Alanine Aminotransferase < 9 U/L (7-40)
[2023-03-10 06:23] LABS: Anion Gap 9 (5-15); Carbon Dioxide 26 mmol/L (20-30)
[2023-03-10] MEDS: risperiDONE 1 MG TAB PO SCH ×2 (08:58→21:45)
[2023-03-10] MEDS: LISINOPRIL 10 MG TAB PO SCH (09:01)
[2023-03-10] MEDS: ATENOLOL 25 MG TAB PO SCH (09:02)
[2023-03-10] MEDS: PANTOPRAZOLE 40 MG TAB PO SCH ×2 (09:02→21:45)
[2023-03-10] MEDS: THIAMINE HCL 100 MG TAB PO SCH (09:02)
[2023-03-10] MEDS: SERTRALINE HCL 50 MG TAB PO SCH ×2 (09:03→11:33)
[2023-03-10] MEDS ORDERED: ASPirin 81 mg TAB PO SCH (10:00)
[2023-03-10] MEDS: MULTIPLE VITAMIN PO SCH (10:00)
[2023-03-10] MEDS ORDERED: hydrALAZINE HCL 20 MG/ML VL IV PRN (10:30)
[2023-03-10] MEDS ORDERED: cefTRIAXone 1GM/50ML D5W 50 ML IV ONE (10:30)
[2023-03-10 14:11] LABS: INR 1.12 (0.9-1.15); Prothrombin Time 11.7 sec (9.3-11.8)
[2023-03-10] MEDS ORDERED: HEPARIN DRIP/D5W 100UNITS/ML 250 ML IV SCH (15:00)
[2023-03-10 17:58] LABS: Free T4 (Free Thyroxine) 1.11 ng/dL (0.89-1.76)
[2023-03-10] MEDS ORDERED: VANCOMYCIN PER PHARMACY 0 MG IV SCH (19:00)
[2023-03-10] MEDS ORDERED: CYANOCOBALAMIN (B-12) 1000 MCG/1 ML VIAL IM ONE (19:15)
[2023-03-10] MEDS ORDERED: VANCOMYCIN 1GM/250ML 250 ML IV ONE (20:00)
[2023-03-10 23:11] LABS: INR 1.14 (0.9-1.15); Partial Thromboplastin Time 46.8 SEC (24.5-34.5); Prothrombin Time 11.9 sec (9.3-11.8)
[2023-03-11] VITALS (18 sets, daily range): BP systolic 124–133; BP diastolic 53–74; PULSE 61–107; RESP 16–18; TEMP 36.3; O2SAT 92–100
[2023-03-11] MEDS: IPRATROPIUM BROM 0.5 MG/2.5ML INH SOL NEB SCH ×5 (00:10→23:56)
[2023-03-11] MEDS: ALBUTEROL MEDNEB 2.5 mg/3ml NEB NEB PRN ×4 (00:10→19:15)
[2023-03-11] MEDS: InsuLIN REG 1unit/0.01ml Soln (100units/ml) SC SCH ×4 (06:27→20:44)
[2023-03-11] MEDS: ACCU-CHEK COMFORT CURVE STRIP VI SCH ×4 (06:27→20:44)
[2023-03-11 06:47] LABS: Chloride 100 mmol/L (98-107); Potassium 3.3 mmol/L (3.5-5.1); Sodium 135 mmol/L (136-145)
[2023-03-11 06:48] LABS: Anion Gap 8 (5-15); Calcium 8.6 mg/dL (8.5-10.1); Carbon Dioxide 27 mmol/L (20-30)
[2023-03-11] MEDS ORDERED: LEVO750T40 PO (06:51)
[2023-03-11 06:53] LABS: Blood Urea Nitrogen 19 mg/dL (9-23); Glucose 91 mg/dL (74-106)
[2023-03-11] MEDS ORDERED: APIX5TAB PO (06:54)
[2023-03-11 06:57] LABS: Partial Thromboplastin Time < 20.0 SEC (24.5-34.5); Prothrombin Time 11.5 sec (9.3-11.8)
[2023-03-11] MEDS ORDERED: cefTRIAXone 1GM/50ML D5W 50 ML IV SCH (09:00)
[2023-03-11] MEDS: risperiDONE 1 MG TAB PO SCH ×2 (09:02→22:11)
[2023-03-11] MEDS: ATENOLOL 25 MG TAB PO SCH (09:02)
[2023-03-11] MEDS: SERTRALINE HCL 50 MG TAB PO SCH (09:03)
[2023-03-11] MEDS: PANTOPRAZOLE 40 MG TAB PO SCH ×2 (09:03→22:11)
[2023-03-11] MEDS: THIAMINE HCL 100 MG TAB PO SCH (09:03)
[2023-03-11] MEDS: LISINOPRIL 10 MG TAB PO SCH (09:03)
[2023-03-11] MEDS: MULTIPLE VITAMIN PO SCH (09:04)
[2023-03-11 09:15] LABS: Basophils # (auto) 0.1 10 ^3/uL (0-0.2); Basophils % (auto) 0.8 % (0.0-2.0); Eosinophils # (auto) 0.1 10 ^3/uL (0-0.8); Eosinophils % (auto) 0.6 % (0.0-7.0); Hematocrit 35.9 % (36.0-46.0); Hemoglobin 11.5 g/dL (12.2-16.2); Lymphocytes # (auto) 2.3 10 ^3/uL (0.4-5.4); Lymphocytes % (auto) 19.2 % (10.0-50.0); Mean Corpuscular Hemoglobin 27.5 pg (28.0-32.0); Monocytes # (auto) 0.8 10 ^3/uL (0-1.3); Monocytes % (auto) 6.3 % (0.0-12.0); Neutrophils # (auto) 8.7 10 ^3/uL (1.6-8.6); Neutrophils % (auto) 73.1 % (37.0-80.0); Nucleated Red Blood Cells % 0.1 %; Red Blood Cells 4.18 10^6/uL (4.0-5.20); Red Cell Distribution Width 15.7 % (11.8-14.3)
[2023-03-11] MEDS ORDERED: POTASSIUM CHL 20 Meq TABLET PO ONE (09:15)
[2023-03-11] MEDS ORDERED: APIXABAN 5 MG TAB PO SCH (10:00)
[2023-03-11] MEDS ORDERED: APIXABAN 5 MG TAB PO ONE (10:15)
[2023-03-11] MEDS ORDERED: ACETAMINOPHEN 325 MG TAB PO ONE (10:15)
[2023-03-11] MEDS ORDERED: VANCOMYCIN 1GM/250ML 250 ML IV SCH (20:00)
[2023-03-12 05:00] VITALS: BP 109/65; PULSE 90; RESP 18; TEMP 97.9; O2SAT 95
[2023-03-12 05:45] LABS: Basophils # (auto) 0.1 10 ^3/uL (0-0.2); Eosinophils # (auto) 0.2 10 ^3/uL (0-0.8); Eosinophils % (auto) 2.7 % (0.0-7.0); Hematocrit 33.1 % (36.0-46.0); Hemoglobin 10.6 g/dL (12.2-16.2); Lymphocytes % (auto) 25.8 % (10.0-50.0); Mean Corpuscular Hemoglobin 27.4 pg (28.0-32.0); Mean Corpuscular Hgb Conc. 31.9 g/dL (32.0-36.0); Mean Corpuscular Volume 85.8 fL (80.0-100.0); Monocytes # (auto) 0.7 10 ^3/uL (0-1.3); Monocytes % (auto) 9.8 % (0.0-12.0); Neutrophils # (auto) 4.6 10 ^3/uL (1.6-8.6); Neutrophils % (auto) 60.7 % (37.0-80.0); Red Blood Cells 3.86 10^6/uL (4.0-5.20); Red Cell Distribution Width 16.1 % (11.8-14.3); White Blood Cell 7.6 10^3/uL (4.4-10.8)
[2023-03-12 05:56] LABS: Albumin 3.8 g/dL (3.2-4.8); Alkaline Phosphatase 68 U/L (46-116); Anion Gap 7 (5-15); Aspartate Aminotransferase 11 U/L (13-40); BUN/Creatinine Ratio 14.5 (10.0-20.0); Blood Urea Nitrogen 19 mg/dL (9-23); Calcium 8.7 mg/dL (8.7-10.4); Carbon Dioxide 26 mmol/L (20-30); Chloride 104 mmol/L (98-107); Glucose 91 mg/dL (74-106); Potassium 3.6 mmol/L (3.5-5.1); Sodium 137 mmol/L (136-145); Total Protein 5.9 g/dL (5.7-8.2)
[2023-03-12 05:59] LABS: Bilirubin, Total 0.3 mg/dL (0.2-1.0)
[2023-03-12 06:11] LABS: Alanine Aminotransferase < 9 U/L (7-40)
[2023-03-12] MEDS: InsuLIN REG 1unit/0.01ml Soln (100units/ml) SC SCH (06:43)
[2023-03-12] MEDS: ACCU-CHEK COMFORT CURVE STRIP VI SCH (06:43)
[2023-03-12 06:45] VITALS: PULSE 65; RESP 16; O2SAT 95
[2023-03-12] MEDS: IPRATROPIUM BROM 0.5 MG/2.5ML INH SOL NEB SCH (06:46)
[2023-03-12 06:55] VITALS: PULSE 62; RESP 16; O2SAT 100
[2023-03-12 08:00] VITALS: PULSE 62; RESP 16
== END 2023-03-12 08:40 | DRG 175 ==
LOC: EDBD 10:48 → ER 10:48 → TELE 15:44 → TELE-CENTR 15:44
PROVIDERS: ADMIT Internal Medicine
DX: I26.09 Other pulmonary embolism with acute cor pulmonale (principal); J96.01 Acute respiratory failure with hypoxia; I82.412 Acute embolism and thrombosis of left femoral vein; N17.9 Acute kidney failure, unspecified; J44.1 Chronic obstructive pulmonary disease with (acute) exacerbation; I13.0 Hypertensive heart and chronic kidney disease with heart failure and stage 1 through stage 4 chronic kidney disease, or unspecified chronic kidney disease; N39.0 Urinary tract infection, site not specified; I50.32 Chronic diastolic (congestive) heart failure; Z20.822 Contact with and (suspected) exposure to COVID-19; N18.9 Chronic kidney disease, unspecified; E11.22 Type 2 diabetes mellitus with diabetic chronic kidney disease; F03.90 Unspecified dementia, unspecified severity, without behavioral disturbance, psychotic disturbance, mood disturbance, and anxiety; Z87.891 Personal history of nicotine dependence; Z88.6 Allergy status to analgesic agent; Z90.49 Acquired absence of other specified parts of digestive tract; Z90.710 Acquired absence of both cervix and uterus
CPT/HCPCS: 36415; 70450; 71045; 71275; 80048; 80053; 81001; 82570; 82607; 82962; 83036; 83605; 83735; 83880; 84300; 84439; 84443; 84484; 85025; 85048; 85379; 85610; 85730; 87040; 87045; 87077; 87081; 87186; 87426; 87427; 87493; 87804; 93005; 93306; 93970; 94640; 96365; 96375; 97110; 97116; 97163; 97530; 99291; G0378; J0696; J1815

== ENCOUNTER → 2023-07-15 | Outpatient (CLI) | payer OTHER ==
[~2023-07-15] MED LIST changes: +APIX5TAB PO; -CIPR-173 PO; +LEVO750T40 PO
[2023-07-15 07:46] LABS: Basophils # (auto) 0.1 10 ^3/uL (0-0.2); Basophils % (auto) 1.3 % (0.0-2.0); Eosinophils # (auto) 0.3 10 ^3/uL (0-0.8); Eosinophils % (auto) 3.2 % (0.0-7.0); Hematocrit 37.1 % (36.0-46.0); Hemoglobin 11.7 g/dL (12.2-16.2); Lymphocytes # (auto) 2.4 10 ^3/uL (0.4-5.4); Lymphocytes % (auto) 30.3 % (10.0-50.0); Mean Corpuscular Hemoglobin 27.6 pg (28.0-32.0); Mean Corpuscular Hgb Conc. 31.5 g/dL (32.0-36.0); Mean Corpuscular Volume 87.6 fL (80.0-100.0); Monocytes # (auto) 0.4 10 ^3/uL (0-1.3); Monocytes % (auto) 5.4 % (0.0-12.0); Neutrophils # (auto) 4.8 10 ^3/uL (1.6-8.6); Neutrophils % (auto) 59.8 % (37.0-80.0); Red Blood Cells 4.24 10^6/uL (4.0-5.20); Red Cell Distribution Width 14.9 % (11.8-14.3)
[2023-07-15 08:18] LABS: Albumin 4.6 g/dL (3.2-4.8); Alkaline Phosphatase 81 U/L (46-116); Anion Gap 8 (5-15); Aspartate Aminotransferase 14 U/L (13-40); BUN/Creatinine Ratio 15.4 (10.0-20.0); Blood Urea Nitrogen 21 mg/dL (9-23); Calcium 9.4 mg/dL (8.5-10.1); Carbon Dioxide 25 mmol/L (20-30); Chloride 108 mmol/L (98-107); Cholesterol 204 mg/dL (< 200); Glucose 97 mg/dL (74-106); LDL Cholesterol 136 mg/dL (< 100); Potassium 4.6 mmol/L (3.5-5.1); Sodium 141 mmol/L (136-145); Triglycerides 149 mg/dL (< 150)
[2023-07-15 08:19] LABS: Bilirubin, Total 0.3 mg/dL (0.2-1.0); HDL Cholesterol 52 mg/dL (40-59); Total Protein 7.3 g/dL (5.7-8.2)
[2023-07-15 08:25] LABS: Alanine Aminotransferase < 9 U/L (7-40)
== END | disposition home or self-care (01) ==
LOC: LAB 07:26
PROVIDERS: ATTEND Internal Medicine
DX: Z00.01 Encounter for general adult medical examination with abnormal findings (principal); I12.9 Hypertensive chronic kidney disease with stage 1 through stage 4 chronic kidney disease, or unspecified chronic kidney disease; N18.2 Chronic kidney disease, stage 2 (mild); N17.9 Acute kidney failure, unspecified
CPT/HCPCS: 36415; 80053; 80061; 83036; 84439; 84443; 85025

== ENCOUNTER 2024-06-14 00:53 | Inpatient (IN) | payer OTHER ==
[2024-06-14] VITALS (10 sets, daily range): BP systolic 88–150; BP diastolic 39–66; PULSE 54–81; RESP 17–20; TEMP 97.5–98.3; O2SAT 91–97
[~2024-06-14] VITALS: Ht 160 cm; Wt 69.1 kg
--- NOTE | 2024-06-14 03:46 | DVHHPRES ---
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 Patient is a poor historian, she states that she was feeling "sick" 2- 3 days back having generalized weakness associated with nausea, vomiting and shortness of breaths. Patient denied fever, chills, chest pain, abdominal pain or any other symptoms. Upon my examination, the patient had bilateral lung caldwell sounds grossly clear without wheezing or significant crackles. The patient had mild abdominal discomfort on deep palpation at the periumbilical region but nonspecific. There was no peripheral edema present at my examination. We ordered CBC, CMP, lipid panel, hemoglobin A1c, BNP, chest x-ray and other studies. Patient was resumed on her home Eliquis 5 mg b.i.d. and other home medications as well. Meanwhile we will admit the patient for further assessment and management. Cardiovascular: CHF, HTN, hyperipidemia Pulmonary: COPD Psych: Anxiety, Other (dementia) Past Surgical History: Hysterectomy Family History: None Smoke: No ALCOHOL: none Drugs: None Lives: Alone Domestic Violence: Neg Review of Systems Constitutional: No: Fever, Chills, Sweats, Weakness, Malaise, Other Eyes: No: Pain, Vision change, Conjunctivae inflammation, Eyelid inflammation, Other, Redness ENT: No: Ear pain, Ear discharge, Nose pain, Nose discharge, Nose congestion, Mouth pain, Mouth swelling, Throat pain, Throat swelling, Other Respiratory: SOB with excertion; No: Cough, Dry, Shortness of breath, Wheezing, Hemoptysis, Pleuritic Pain, Sputum, Wheezing, Other Cardiovascular: No: Chest Pain, Palpitations, Orthopnea, Paroxysmal Noc. Dyspnea, Edema, Lt Headedness, Other Gastrointestinal: No: Nausea, Vomiting, Abdominal Pain, Diarrhea, Constipation, Melena, Hematochezia, Other Genitourinary: No Dysuria, No Frequency, No Incontinence, No Hematuria, No Retention, No Other Musculoskeletal: No: other, neck pain, shoulder pain, arm pain, back pain, hand pain, leg pain, foot pain Skin: No: Rash, Lesions, Jaundice, Bruising, Other Neurological: No: Weakness, Numbness, Incoordination, Change in speech, Confusion, Seizures, Other Allergies: Coded Allergies: Aspirin (Verified Allergy, Unknown, 03/09/23) Ibuprofen (Verified Allergy, Unknown, 03/09/23) Exam General Appearance: Alert, Oriented X3, Cooperative, No acute distress HEENT: Atraumatic, PERRLA, EOMI, Mucous membr. moist/pink Respiratory: Clear to auscultation, Normal air movement Cardiovascular: Regular rate, Normal S1, Normal S2, No murmurs Abdominal: Normal bowel sounds, Soft, No tenderness, No hepatospenomegaly, No masses Extremities: No clubbing, No cyanosis, No edema, Normal pulses, No tenderness/swelling Skin: No rashes, No breakdown, No significant lesion Neuro: Normal gait, Normal speech, Strength at 5/5 X4 ext, Normal tone, Sensation intact, Cranial nerves 3-12 NL, Reflexes 2+ Psych/Mental Status: Mental status NL, Mood NL Assessment/Plan Assessment/Plan Assessment/plan Generalized weakness likely due to Acute on chronic heart failure exacerbation Respiratory distress likely due to Acute diastolic/systolic heart failure exacerbation R/O PE Possible viral/bacterial pneumonia? pending x ray and labs -Mild crackles on lung bases, rest of lung caldwell are clear, No peripheral edema -Ordered CBC, CMP, BNP -Ordered D-dimer and coag studies -Ordered chest x ray -Ordered EKG -currently on room air -Last echo on 2022 showed an LVEF of 55%, Ordered new Echo -Resume home lisinopril 10mg daily -Cardiac diet -Strict Ins and Outs -Awaiting for labs and further studies R/O UTI -Ordered U/A Primary hypertension -Resume lisinopril 10mg daily -Monitor BP Hx of DVT/PE -Resume home Eliquis 5mg Bid Hx of dementia and anxiety -Resume risperidone 0.5mg daily -Resume sertraline 100mg daily Awaiting all labs and studies Goals of care discussed with the patient at bedside for >30min Plan discussed with Dr. Sandoval Plan discussed with: Patient My Orders Orders - AMRIT CARLSON RESIDENT Procedure Category Date Status Time Complete Blood Count LAB 06/14/24 Logged 03:11 Comprehensive LAB 06/14/24 Logged Metabolic Panel 03:11 Lipid Panel LAB 06/14/24 Logged 03:11 B-Type Natriuretic LAB 06/14/24 Logged Peptide 03:11 Urinalysis LAB 06/14/24 Logged 03:11 Drug Screen LAB 06/14/24 Logged 03:11 Chest Xray 1 View XY 06/14/24 Logged 03:11 Hemoglobin A1c LAB 06/14/24 Logged 03:11 Thyroid Stimulating LAB 06/14/24 Logged Hormone 03:11 Vitamin B12 LAB 06/14/24 Logged 03:11 Vitamin D 25-Hydroxy LAB 06/14/24 Logged D2 + D3 03:11 Covid19 Antigen Yeny LAB 06/14/24 Logged Rapid Influenza A&B LAB 06/14/24 Logged 03:28 Admit ADMIT 06/14/24 Transmitted 03:30 Code Status CODE 06/14/24 Transmitted 03:30 Vital Signs JASIEL 06/14/24 In Process 03:30 Review Orders With JASIEL 06/14/24 In Process Adm. 03:30 Encourage Activity As JASIEL 06/14/24 In Process Tolerate 03:30 Acetaminophen Tablet PHA 06/14/24 Logged (Tylenol Tablet) 03:30 Notify Md Of Changes JASIEL 06/14/24 In Process From Base 03:30 Advance Directive JASIEL 06/14/24 In Process 03:30 Patient Condition ORDERS 06/14/24 Transmitted 03:30 Allergies JASIEL 06/14/24 In Process 03:30 Echo 2d Mode Cardiac US 06/14/24 Verified DOP 03:33 Date of Service: Jun 14, 2024 Billing Provider: NINI SANDOVAL MD Common Visit Codes: [id number] INP/OBS CARE (HIGH) Secondary Visit Codes: [id number] CARE PLAN 30 MINUTES AMRIT CARLSON RESIDENT Jun 14, 2024 03:46 NINI SANDOVAL MD Jun 14, 2024 08:46
[2024-06-14] MEDS: PANTOPRAZOLE 40 MG TAB PO SCH (05:17)
[2024-06-14 06:02] LABS: Basophils # (auto) 0.1 10 ^3/uL (0-0.2); Eosinophils # (auto) 0.2 10 ^3/uL (0-0.8)
[2024-06-14 06:08] LABS: Basophils % (auto) 0.8 % (0.0-2.0); Eosinophils % (auto) 2.4 % (0.0-7.0); Hematocrit 33.2 % (36.0-46.0); Hemoglobin 10.6 g/dL (12.2-16.2); Lymphocytes # (auto) 0.9 10 ^3/uL (0.4-5.4); Mean Corpuscular Hemoglobin 26.1 pg (28.0-32.0); Mean Corpuscular Hgb Conc. 31.9 g/dL (32.0-36.0); Mean Corpuscular Volume 81.8 fL (80.0-100.0); Monocytes # (auto) 0.2 10 ^3/uL (0-1.3); Monocytes % (auto) 2.2 % (0.0-12.0); Neutrophils # (auto) 6.5 10 ^3/uL (1.6-8.6); Neutrophils % (auto) 83.6 % (37.0-80.0); Nucleated Red Blood Cells % 1.5 %; Platelet Count (auto) 321 10^3/uL (140-450); Red Blood Cells 4.06 10^6/uL (4.0-5.20); Red Cell Distribution Width 17.5 % (11.8-14.3); White Blood Cell 7.8 10^3/uL (4.4-10.8)
[2024-06-14 06:56] LABS: Large Platelets FEW; Platelet Estimate Adequate
--- NOTE | 2024-06-14 07:26 | DVH ---
EXAM: XR Chest, 1 View CLINICAL INDICATION: SOB TECHNIQUE: Frontal view of the chest. COMPARISON: XY CHEST PORTABLE on DOS: 03/09/23, XY CHEST PORTABLE on DOS: 07/06/22, XY CHEST PORTABL E on DOS: 07/05/22 FINDINGS: LUNGS AND PLEURAL SPACES: Mild pulmonary congestion. No consolidation. No pneumothorax. HEART: Unremarkable. No cardiomegaly. MEDIASTINUM: Unremarkable. Normal mediastinal contour. BONES/JOINTS: Unremarkable. No acute fracture. OTHER FINDINGS: . None. IMPRESSION: Mild pulmonary congestion.
[2024-06-14] MEDS: risperiDONE 1 MG TAB PO SCH (08:48)
[2024-06-14] MEDS: LISINOPRIL 5 MG TAB PO SCH (08:48)
[2024-06-14] MEDS: SERTRALINE HCL 50 MG TAB PO SCH (08:49)
[2024-06-14] MEDS: APIXABAN 5 MG TAB PO SCH (09:02)
[2024-06-14] MEDS ORDERED: SERT-160 (09:11)
[2024-06-14] MEDS ORDERED: HYD20I PO (09:11)
[2024-06-14] MEDS ORDERED: APIX5TAB (09:11)
[2024-06-14] MEDS ORDERED: LISI10TA34 (09:11)
[2024-06-14] MEDS ORDERED: TRAZ-227 (09:11)
[2024-06-14] MEDS ORDERED: ALBU108A5 (09:11)
[2024-06-14] MEDS ORDERED: RISP0.5T45 (09:11)
[2024-06-14] MEDS ORDERED: OMEP-411 (09:11)
[2024-06-14] MEDS ORDERED: FOLI-119 PO (09:12)
[2024-06-14] MEDS ORDERED: ACET325T82 PO (09:14)
[2024-06-14] MEDS ORDERED: LOPELIQ6 PO (09:15)
[2024-06-14 11:41] LABS: INR 1.07 (0.9-1.15); Partial Thromboplastin Time 26.8 SEC (24.5-34.5); Prothrombin Time 11.3 sec (9.3-11.8)
[2024-06-14 11:43] LABS: Albumin 4.5 g/dL (3.2-4.8); Alkaline Phosphatase 71 U/L (46-116); Anion Gap 8 (5-15); BUN/Creatinine Ratio 19.8 (10.0-20.0); Blood Urea Nitrogen 22 mg/dL (9-23); Calcium 9.8 mg/dL (8.7-10.4); Carbon Dioxide 25 mmol/L (20-31); Glucose 95 mg/dL (74-106); Magnesium 1.9 mg/dL (1.6-2.6); Potassium 4.2 mmol/L (3.5-5.1); Sodium 141 mmol/L (136-145)
[2024-06-14 11:44] LABS: Total Protein 6.6 g/dL (5.7-8.2)
[2024-06-14 11:45] LABS: Alanine Aminotransferase < 9 U/L (7-40); Aspartate Aminotransferase 12 U/L (13-40); Bilirubin, Total 0.3 mg/dL (0.2-1.0); Chloride 108 mmol/L (98-107)
--- NOTE | 2024-06-14 13:21 | DVHPN2 ---
Reviewed: Care Plan, H&P, Labs, Medications, Previous Orders, Radiology Changes from previous H/P or p: No Changes Eyes: No Pain, No Vision change, No Conjunctivae inflammation, No Eyelid inflammation, No Other, No Redness ENT: No Ear pain, No Ear discharge, No Nose pain, No Nose discharge, No Nose congestion, No Mouth pain, No Mouth swelling, No Throat pain, No Throat swelling, No Other Cardiovascular: No Chest Pain, No Palpitations, No Orthopnea, No Paroxysmal Noc. Dyspnea, No Edema, No Lt Headedness, No Other Respiratory: No Cough, No Dry, No Shortness of breath; SOB with excertion; No Wheezing, No Hemoptysis, No Pleuritic Pain, No Sputum, No Other Gastrointestinal: No Nausea, No Vomiting, No Abdominal Pain, No Diarrhea, No Constipation, No Melena, No Hematochezia, No Other Genitourinary: No Dysuria, No Frequency, No Incontinence, No Hematuria, No Retention, No Other Musculoskeletal: No other, No neck pain, No shoulder pain, No arm pain, No back pain, No hand pain, No leg pain, No foot pain Skin: No Rash, No Lesions, No Jaundice, No Bruising, No Other Objective Vitals Vital Signs Date Time Temp Pulse Resp B/P (MAP) Pulse Ox O2 Delivery O2 Flow Rate FiO2 06/14/24 12:57 97.5 81 20 106/51 (69) 96 97.5 06/14/24 08:00 Room Air* 0 21 Intake/Output Intake and Output 06/14/24 07:00 Intake Total 0 ml Balance 0 ml Intake Oral 0 ml Medications Current Medications Medications Dose Ordered Sig/Terese Route Start Time Stop Time Status Last Admin Dose Admin Acetaminophen 650 mg Q6HP PRN PO 06/14/24 03:30 Apixaban 5 mg BID PO 06/14/24 10:00 06/14/24 09:02 5 MG Lisinopril 10 mg DAILY PO 06/14/24 10:00 Pantoprazole Sodium 40 mg DAILY@0600 PO 06/14/24 06:00 06/14/24 05:17 40 MG Risperidone 0.5 mg DAILY PO 06/14/24 10:00 Sertraline HCl 100 mg DAILY PO 06/14/24 10:00 Laboratory Results Laboratory Tests 06/14/24 05:14 06/14/24 11:00 Chemistry Test 06/14/24 11:00 Albumin 4.5 g/dL (3.2-4.8) Calcium Level 9.8 mg/dL (8.7-10.4) Magnesium Level 1.9 mg/dL (1.6-2.6) Total Protein 6.6 g/dL (5.7-8.2) Coagulation Test 06/14/24 11:00 Prothrombin Time 11.3 sec (9.3-11.8) Prothrombin Time INR 1.07 (0.9-1.15) Activated Partial Thromboplast Time 26.8 SEC (24.5-34.5) D-Dimer, Quantitative 0.46 mg/L FEU (0.0-0.49) Lipid panel Test 06/14/24 11:00 Cholesterol Level Pending HDL Cholesterol Pending Triglycerides Level Pending Cardiac Markers Test 06/14/24 05:14 B-Type Natriuretic Peptide 219.41 pg/mL (0-100) LFT Test 06/14/24 11:00 Alanine Aminotransferase (ALT) < 9 U/L (7-40) Alkaline Phosphatase 71 U/L (46-116) Aspartate Amino Transferase (AST) 12 U/L (13-40) L Total Bilirubin 0.3 mg/dL (0.2-1.0) HgA1c, TSH Test 06/14/24 05:14 Hemoglobin A1c 5.5 % A1C (<5.7) Thyroid Stimulating Hormone (TSH) 0.74 uIU/mL (0.55-4.78) Assessment/Plan Assessment/Plan Acute generalized weakness: Labs normal: Check flu test check COVID test Acute on chronic congestive heart failure Hypertension Hypercholesterolemia History of COPD History of PE on Eliquis Depression: Zoloft Risperdal D-dimer normal Chest x-ray negative Plan discussed with: Patient My Orders Orders - YUMI ALVARADO MD Procedure Category Date Status Time Rapid Influenza A&B LAB 06/14/24 Verified 13:15 Date of Service: Jun 14, 2024 Billing Provider: YUMI ALVARADO MD Common Visit Codes: [id number] INP/OBS CARE(HIGH) YUMI ALVARADO MD Jun 14, 2024 13:21
[2024-06-14 15:24] LABS: Triglycerides 104 mg/dL (< 150)
[2024-06-14 15:25] LABS: Cholesterol 187 mg/dL (< 200)
[2024-06-14 15:26] LABS: HDL Cholesterol 56 mg/dL (40-59)
--- NOTE | 2024-06-14 15:28 | DVHSR ---
APPROVED REPORT EXAM: Two-dimensional and M-mode echocardiogram with Doppler and color Doppler. Blood Pressure: 150/63 mmHg INDICATION CHF RISK FACTORS Height: 50, Weight: 156 DIMENSIONS LVDd (3.8-5.7cm)LA (2D)4.1 (1.9-4.0cm)Aortic Root3.2 (2.0-3.7cm) LVDs (2.5-4.0cm)LA (MM) (1.9-4.0cm)Aortic Cusp Exc1.6 (1.5-2.0cm) EF (%) 58.0 (55-70%)Rt. Atrium4.2 (1.9-4.0cm)Asc. Aorta cm Mitral Valve MitralMitral Stenosis E wave0.81m/sMV Mean GR.mmHg A wave0.72m/sMV Peak GR.41mmHg E/A ratio1.12D MVAcm2 DECEL [id number] 1/2 [id number] IVRTmsDop MVA4.04cm2 Aortic Valve Aortic ValveAortic Stenosis V10.73m/Ronnie Mean GR.2mmHg V20.90m/Ronnie Peak GR.3mmHg LVOT Diameter2.0 (1.8-2.4cm)Doppler AVA2.55cm2 Pulmonic Valve V20.65m/s Tricuspid Valve TR Velocity2.60m/s [id number] Other Information Technically limited study due to body habitus, patient position and patient was sensitve to touch. Conclusion lvef 55% by visual estimate normal rv function left atrium enlarged moderate mitrla regurg mild tricuspid regurg mild
[2024-06-14 15:30] LABS: LDL Cholesterol 117 mg/dL (< 100)
[2024-06-14 15:52] LABS: COVID19 ANTIGEN SOFIA FIA NEGATIVE (NEGATIVE); Rapid Influenza A Negative (Negative); Rapid Influenza B Negative (Negative)
[2024-06-14] MEDS: SODIUM CHLORIDE 0.9% 1,000 ML IV SCH (18:00)
[2024-06-15] VITALS (7 sets, daily range): BP systolic 119–158; BP diastolic 66–96; PULSE 63–75; RESP 17–18; TEMP 98–98.9; O2SAT 92–96
--- NOTE | 2024-06-15 10:46 | DVHPN2 ---
Reviewed: Care Plan, H&P, Labs, Medications, Previous Orders, Radiology Changes from previous H/P or p: No Changes Eyes: No Pain, No Vision change, No Conjunctivae inflammation, No Eyelid inflammation, No Other, No Redness ENT: No Ear pain, No Ear discharge, No Nose pain, No Nose discharge, No Nose congestion, No Mouth pain, No Mouth swelling, No Throat pain, No Throat swelling, No Other Cardiovascular: No Chest Pain, No Palpitations, No Orthopnea, No Paroxysmal Noc. Dyspnea, No Edema, No Lt Headedness, No Other Respiratory: No Cough, No Dry, No Shortness of breath; SOB with excertion; No Wheezing, No Hemoptysis, No Pleuritic Pain, No Sputum, No Other Gastrointestinal: No Nausea, No Vomiting, No Abdominal Pain, No Diarrhea, No Constipation, No Melena, No Hematochezia, No Other Genitourinary: No Dysuria, No Frequency, No Incontinence, No Hematuria, No Retention, No Other Musculoskeletal: No other, No neck pain, No shoulder pain, No arm pain, No back pain, No hand pain, No leg pain, No foot pain Skin: No Rash, No Lesions, No Jaundice, No Bruising, No Other Objective Vitals Vital Signs Date Time Temp Pulse Resp B/P (MAP) Pulse Ox O2 Delivery O2 Flow Rate FiO2 06/15/24 01:00 98.0 67 18 135/66 (89) 95 98.0 06/14/24 20:00 Room Air* 0 21 Intake/Output Intake and Output 06/15/24 07:00 Intake Total 1082.5 ml Output Total 525 ml Balance 557.5 ml Intake Oral 1020 ml IV Total 62.5 ml Output Urine Total 525 ml # Voids 4 # Bowel Movements 1 Medications Current Medications Medications Dose Ordered Sig/Terese Route Start Time Stop Time Status Last Admin Dose Admin Acetaminophen 650 mg Q6HP PRN PO 06/14/24 03:30 Apixaban 5 mg BID PO 06/14/24 10:00 06/15/24 09:40 5 MG Pantoprazole Sodium 40 mg DAILY@0600 PO 06/14/24 06:00 06/15/24 06:03 40 MG Risperidone 0.5 mg DAILY PO 06/14/24 10:00 06/15/24 09:40 0.5 MG Sertraline HCl 100 mg DAILY PO 06/14/24 10:00 06/15/24 09:39 100 MG Sodium Chloride 1,000 ml @ 125 mls/hr Q8H IV 06/14/24 15:00 06/14/24 18:00 125 MLS/HR Laboratory Results Laboratory Tests 06/14/24 05:14 06/14/24 11:00 Chemistry Test 06/14/24 11:00 Albumin 4.5 g/dL (3.2-4.8) Calcium Level 9.8 mg/dL (8.7-10.4) Magnesium Level 1.9 mg/dL (1.6-2.6) Total Protein 6.6 g/dL (5.7-8.2) Coagulation Test 06/14/24 11:00 Prothrombin Time 11.3 sec (9.3-11.8) Prothrombin Time INR 1.07 (0.9-1.15) Activated Partial Thromboplast Time 26.8 SEC (24.5-34.5) D-Dimer, Quantitative 0.46 mg/L FEU (0.0-0.49) Lipid panel Test 06/14/24 11:00 Cholesterol Level 187 mg/dL (< 200) HDL Cholesterol 56 mg/dL (40-59) Triglycerides Level 104 mg/dL (< 150) LFT Test 06/14/24 11:00 Alanine Aminotransferase (ALT) < 9 U/L (7-40) Alkaline Phosphatase 71 U/L (46-116) Aspartate Amino Transferase (AST) 12 U/L (13-40) L Total Bilirubin 0.3 mg/dL (0.2-1.0) Labs and/or images reviewed: Labs reviewed by me, Image(s) reviewed by me Assessment/Plan Assessment/Plan Acute generalized weakness: Labs normal: Check flu test check COVID test Acute on chronic congestive heart failure : Consult for Cardiology louisa Milian Possible Community-acquired pneumonia: Rocephin and Zithromax Hypertension Hypercholesterolemia History of COPD History of PE on Eliquis Depression: Zoloft Risperdal History of fall at home: CT head ordered D-dimer normal Chest x-ray negative Mendy test negative Rapid flu test negative Plan discussed with: Patient My Orders Orders - YUMI ALVARADO MD Procedure Category Date Status Time Sodium Chloride 0.9% PHA 06/14/24 In Process 15:00 Mrsa Screen HALLIE 06/14/24 In Process 13:45 Date of Service: Jun 15, 2024 Billing Provider: YUMI ALVARADO MD Common Visit Codes: [id number] INP/OBS CARE(HIGH) YUMI ALVARADO MD Jun 15, 2024 10:45
--- NOTE | 2024-06-15 11:23 | DVH ---
EXAM: CT HEAD WITHOUT CONTRAST HISTORY: History of fall COMPARISON: CT HEAD WITHOUT CONTRAST on DOS: 03/10/23, HEAD WITHOUT CONTRAST on DOS: 09/21/20, HEAD WI THOUT CONTRAST on DOS: 09/17/20 TECHNIQUE: Axial images were obtained and reformatted in coronal and sagittal planes. All CT scans at this medical facility are performed using dose modulation techniques as appropriate t o a performed exam including the following: Automated exposure control was utilized; adjustment of th e MA and/or KV according to patient size; and use of iterative reconstruction technique. CT Dose: CTDI volume is 48.65 mGy. Dose-length product is 682.88 mGy*cm FINDINGS: Supratentorial Region: No evidence for large acute territorial ischemia. No intracranial hemorrhage is noted. Confluent white matter hypoattenuating foci are noted bilaterally, which typically reflect chronic microvascular ischemic changes. Posterior Fossa: No acute abnormality. Brainstem: Unremarkable. Sellar/Suprasellar Region: Unremarkable. Ventricles, Cisterns, Sulci: Age-appropriate. Orbits: Unremarkable. Paranasal Sinuses: Mild diffuse paranasal sinus mucosal thickening noted. Mastoid Air Cells: Unremarkable. Vasculature: Unremarkable. Bones/Soft Tissues: No acute abnormality. Other: None. IMPRESSION: 1. No acute intracranial process. 2. Moderate paranasal sinus disease.
[2024-06-15] MEDS: AZITHROMYCIN 250 MG TAB PO ONE (12:01)
[2024-06-15] MEDS: FUROSEMIDE 40 MG/4 ML VIAL IV ONE (12:02)
[2024-06-15] MEDS: cefTRIAXone 1GM/50ML D5W 50 ML IV ONE (12:02)
[2024-06-15] MEDS: ACETAMINOPHEN 325 MG TAB PO PRN (12:30)
--- NOTE | 2024-06-15 14:51 | DVHINCON2 ---
Date Seen: Jun 15, 2024 Referring Physician MD Omid Reason for Consultation CHF exacerbation History of Present Illness This is a 78-year-old female patient who presents to this facility as a transfer from [facility] for generalized weakness. The patient was transferred to this facility for insurance reasons. Cardiology has now been consulted for CHF exacerbation. Initial twelve lead electrocardiogram reveals normal sinus rhythm with artifact seen in every lead. The patient is a very poor historian given her history of dementia. At the time of assessment the patient is only alert to self and place. She is unable to describe why she is in the hospital or what symptoms she was having prior to arrival. Significant past medical history includes congestive heart failure, hypertension, previous left leg DVT and history of PE (on Eliquis), COPD, anxiety, dementia, and obesity. 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 Past Medical History Past medical history reviewed. No other significant than mentioned above. Past Surgical History Open reduction and internal fixation of the medial and lateral malleoli in 2013 Family History: Cancer AUNTIE UNCLE FH: myocardial infarction 19 CHILD, G8 SISTER, Family History Family history reviewed. Social History Denies the use of tobacco, alcohol or illicit drugs. Allergies: Coded Allergies: Aspirin (Verified Allergy, Unknown, 03/09/23) Ibuprofen (Verified Allergy, Unknown, 03/09/23) Home Meds Reported Medications Loperamide HCl (Imodium A-D) 1 Mg/7.5 Ml Liq, 1 MG PO Q6HR, LIQ 06/14/24 Acetaminophen (Apap) 325 Mg Tab, 2 TAB PO Q6HR, #30 TAB 06/14/24 Folic Acid (Folic Acid) 1 Mg Tab, 1 MG PO DAILY, TAB 06/14/24 Hydralazine Hcl (Apresoline) 20 Mg/Ml Ij, 10 MG PO BID, INJ 06/14/24 Trazodone Hcl (Trazodone Hcl) 50 Mg Tab, 1 06/14/24 Sertraline Hcl (Sertraline Hcl) 100 Mg Tab, 1 DAILY 06/14/24 Risperidone (Risperidone) 0.5 Mg Tab 06/14/24 Omeprazole ([facility] Omeprazole Odt) 20 Mg Tab, 2 06/14/24 Lisinopril (Lisinopril) 10 Mg Tab, 1 DAILY 06/14/24 Apixaban Base (ELIQUIS) 5 Mg Tab, 1 06/14/24 Albuterol Sulfate (Albuterol Sulfate Hfa) 108 Mcg/Act Aer 06/14/24 Home Meds Home medications reviewed. Current Medications Current Medications Medications (Trade) Dose Ordered Sig/Terese Route PRN Reason Start Time Stop Time Status Last Admin Sodium Chloride 1,000 ml @ 125 mls/hr Q8H IV 06/14/24 15:00 06/15/24 12:24 Ceftriaxone Sodium 50 ml @ 100 mls/hr DAILY@09 IV 06/16/24 09:00 Azithromycin (Zithromax Tablet) 500 mg DAILY PO 06/16/24 10:00 Furosemide (Lasix Injection) 40 mg DAILY IV 06/16/24 10:00 Review of Systems Constitutional: Generalized weakness Ears, Nose, & Throat: No symptom reported Eyes: No symptom reported Neurological: No symptoms reported Pulmonary/Respiratory: No symptoms reported Cardiovascular: No symptom reported Gastrointestinal: No symptom reported Genitourinary: No symptom reported Musculoskeletal: No symptom reported Skin: No symptom reported Psychiatric: No symptom reported Endocrine: No symptom reported Hematologic/Lymphatic: No symptom reported Vital Signs Vital Signs Date Time Temp Pulse Resp B/P (MAP) Pulse Ox O2 Delivery O2 Flow Rate FiO2 06/15/24 12:02 134/66 06/15/24 08:00 67 06/15/24 08:00 18 96 Room Air* 0 21 06/15/24 01:00 98.0 98.0 Physical Exam General Appearance: Cooperative. Morbidly obese Pulmonary/Respiratory: Coarse bilateral upper lobes Cardiovascular/Chest: Regular rate and rhythm. Peripheral Pulses: 2+ Radial (R). 2+ Radial (L). 2+ Pedal (R). 2+ Pedal (L) Abdominal Exam: Normal bowel sounds. Ankle Exam: Negative ankle edema Lower extremities: Negative lower extremity edema Neuro/Mental Status: A/OX2, confused Thoughts/Psych: Normal thought pattern. Appropriate mood and affect. Good judgment and insight. Appearance: No acute distress. Skin Exam: Normal inspection. Normal color. Warm and dry. Labs/Diagnostic Data Labs Test 06/14/24 13:50 06/14/24 11:00 06/14/24 05:14 Range/Units Influenza Type A Antigen Negative Negative Influenza Type B Antigen Negative Negative SARS-CoV-2 Antigen (Rapid) Negative NEGATIVE Prothrombin Time 11.3 9.3-11.8 sec Prothrombin Time INR 1.07 0.9-1.15 Activated Partial Thromboplast Time 26.8 24.5-34.5 SEC D-Dimer, Quantitative 0.46 0.0-0.49 mg/L FEU Sodium Level 141 136-145 mmol/L Potassium Level 4.2 3.5-5.1 mmol/L Chloride Level 108 H 98-107 mmol/L Carbon Dioxide Level 25 20-31 mmol/L Anion Gap 8 5-15 Blood Urea Nitrogen 22 9-23 mg/dL Creatinine 1.11 H 0.550-1.02 mg/dL Glomerular Filtration Rate Calc 51 >90 mL/min BUN/Creatinine Ratio 19.8 10.0-20.0 Serum Glucose 95 74-106 mg/dL Calcium Level 9.8 8.7-10.4 mg/dL Magnesium Level 1.9 1.6-2.6 mg/dL Total Bilirubin 0.3 0.2-1.0 mg/dL Aspartate Amino Transferase (AST) 12 L 13-40 U/L Alanine Aminotransferase (ALT) < 9 7-40 U/L Alkaline Phosphatase 71 46-116 U/L Total Protein 6.6 5.7-8.2 g/dL Albumin 4.5 3.2-4.8 g/dL Triglycerides Level 104 < 150 mg/dL Cholesterol Level 187 < 200 mg/dL LDL Cholesterol 117 H < 100 mg/dL HDL Cholesterol 56 40-59 mg/dL White Blood Count 7.8 4.4-10.8 10^3/uL Red Blood Count 4.06 4.0-5.20 10^6/uL Hemoglobin 10.6 L 12.2-16.2 g/dL Hematocrit 33.2 L 36.0-46.0 % Mean Corpuscular Volume 81.8 80.0-100.0 fL Mean Corpuscular Hemoglobin 26.1 L 28.0-32.0 pg Mean Corpuscular Hemoglobin Concent 31.9 L 32.0-36.0 g/dL Red Cell Distribution Width 17.5 H 11.8-14.3 % Platelet Count 321 140-450 10^3/uL Mean Platelet Volume 8.7 6.9-10.8 fL Neutrophils (%) (Auto) 83.6 H 37.0-80.0 % Lymphocytes (%) (Auto) 11.0 10.0-50.0 % Monocytes (%) (Auto) 2.2 0.0-12.0 % Eosinophils (%) (Auto) 2.4 0.0-7.0 % Basophils (%) (Auto) 0.8 0.0-2.0 % Neutrophils # (Auto) 6.5 1.6-8.6 10 ^3/uL Lymphocytes # (Auto) 0.9 0.4-5.4 10 ^3/uL Monocytes # (Auto) 0.2 0-1.3 10 ^3/uL Eosinophils # (Auto) 0.2 0-0.8 10 ^3/uL Basophils # (Auto) 0.1 0-0.2 10 ^3/uL Nucleated Red Blood Cells 1.5 % Platelet Estimate Adequate Large Platelets Few Hemoglobin A1c 5.5 <5.7 % A1C B-Type Natriuretic Peptide 219.41 0-100 pg/mL Vitamin B12 Level 525 211-911 pg/mL Thyroid Stimulating Hormone (TSH) 0.74 0.55-4.78 uIU/mL Assessment Chronic HFpEF, NYHA class II Mitral and tricuspid valve regurgitation, mild degree Hypertension History of DVT/PE (on Eliquis) COPD Dementia Morbidly obese Plan/Recommendation We will continue with the following plan/recommendations (Dr. Friend): Case discussed and reviewed with . Transthoracic echocardiogram reveals EF 55%. At the time of assessment, the patient shows no signs of fluid overload. No significant peripheral edema seen, no JVD seen on physical examination. Chest x-ray does report mild pulmonary congestion. Continue with diuretics as needed as this is a class 1 recommendation for GDMT for HFpEF. Consider SGLT2i such as Jardiance. There is no further inpatient cardiac workup indicated at this time. Thank you for allowing us to care for this patient. Please call with any questions or concerns. Critical care time spent: 42 minutes This medical document was created using an electronic medical record system with voice recognition software and computerized dictation system. Although this document has been carefully reviewed, there might still be some phonetic and typographical errors. Occasional wrong-word or ``sound-alike substitutions may have occurred due to the inherent limitations of voice recognition software. These areas are purely typographical due to imperfections of the software programs and do not reflect any compromise in the patient's medical care. Please read the chart carefully and recognize, using context, where these substitutions have occurred. Plan discussed with: Patient NYHA Physical activity limitations: Class2(Slight)fatigue,sob (palpitatns, angina w activityv) Date of Service: Jun 15, 2024 Billing Provider: PATRICIA RODRIGUEZ Cardiology Common Codes: [id number] INP/OBS CARE (High) Cardiology Consultation Codes: [id number] CONSULT <45MIN PATRICIA RODRIGUEZ Jun 15, 2024 14:51
[2024-06-16 00:32] VITALS: BP 132/79; PULSE 60; RESP 17; TEMP 98; O2SAT 94
[2024-06-16 08:00] VITALS: PULSE 56; RESP 15; O2SAT 98
[2024-06-16] MEDS: cefTRIAXone 1GM/50ML D5W 50 ML IV SCH (08:45)
[2024-06-16 09:00] VITALS: BP 123/56; PULSE 58; RESP 18; TEMP 98.3; O2SAT 92
[2024-06-16] MEDS: FUROSEMIDE 40 MG/4 ML VIAL IV SCH (10:05)
[2024-06-16] MEDS: AZITHROMYCIN 250 MG TAB PO SCH (10:06)
--- NOTE | 2024-06-16 11:54 | DVHPN2 ---
Reviewed: Care Plan, H&P, Labs, Medications, Previous Orders, Radiology Changes from previous H/P or p: No Changes Eyes: No Pain, No Vision change, No Conjunctivae inflammation, No Eyelid inflammation, No Other, No Redness ENT: No Ear pain, No Ear discharge, No Nose pain, No Nose discharge, No Nose congestion, No Mouth pain, No Mouth swelling, No Throat pain, No Throat swelling, No Other Cardiovascular: No Chest Pain, No Palpitations, No Orthopnea, No Paroxysmal Noc. Dyspnea, No Edema, No Lt Headedness, No Other Respiratory: No Cough, No Dry, No Shortness of breath; SOB with excertion; No Wheezing, No Hemoptysis, No Pleuritic Pain, No Sputum, No Other Gastrointestinal: No Nausea, No Vomiting, No Abdominal Pain, No Diarrhea, No Constipation, No Melena, No Hematochezia, No Other Genitourinary: No Dysuria, No Frequency, No Incontinence, No Hematuria, No Retention, No Other Musculoskeletal: No other, No neck pain, No shoulder pain, No arm pain, No back pain, No hand pain, No leg pain, No foot pain Skin: No Rash, No Lesions, No Jaundice, No Bruising, No Other Objective Vitals Vital Signs Date Time Temp Pulse Resp B/P (MAP) Pulse Ox O2 Delivery O2 Flow Rate FiO2 06/16/24 10:05 123/56 06/16/24 08:00 56 06/16/24 08:00 15 98 Room Air* 0 21 06/16/24 00:32 98.0 98.0 Intake/Output Intake and Output 06/16/24 07:00 Intake Total 2240 ml Balance 2240 ml Intake Oral 1440 ml IV Total 800 ml # Voids 6 Medications Current Medications Medications Dose Ordered Sig/Terese Route Start Time Stop Time Status Last Admin Dose Admin Acetaminophen 650 mg Q6HP PRN PO 06/14/24 03:30 06/16/24 10:43 650 MG Apixaban 5 mg BID PO 06/14/24 10:00 06/16/24 10:05 5 MG Pantoprazole Sodium 40 mg DAILY@0600 PO 06/14/24 06:00 06/16/24 06:23 40 MG Risperidone 0.5 mg DAILY PO 06/14/24 10:00 06/16/24 10:06 0.5 MG Sertraline HCl 100 mg DAILY PO 06/14/24 10:00 06/16/24 10:05 100 MG Sodium Chloride 1,000 ml @ 125 mls/hr Q8H IV 06/14/24 15:00 06/16/24 06:38 125 MLS/HR Ceftriaxone Sodium 50 ml @ 100 mls/hr DAILY@09 IV 06/16/24 09:00 06/16/24 08:45 100 MLS/HR Azithromycin 500 mg DAILY PO 06/16/24 10:00 06/16/24 10:06 500 MG Furosemide 40 mg DAILY IV 06/16/24 10:00 06/16/24 10:05 40 MG Laboratory Results Laboratory Tests 06/14/24 05:14 06/14/24 11:00 Microbiology Microbiology Date/Time Source Procedure Growth Status 06/14/24 13:50 Nose MRSA Screen - Final Complete Labs and/or images reviewed: Labs reviewed by me, Image(s) reviewed by me Assessment/Plan Assessment/Plan Acute generalized weakness: Labs normal: Acute on chronic congestive heart failure : Consult for Cardiology Dr. Friend, appreciated, ejection fraction 55 percent, no new medications lasix Possible Community-acquired pneumonia: Rocephin and Zithromax Hypertension Hypercholesterolemia History of COPD History of PE on Eliquis Depression: Zoloft Risperdal History of fall at home: CT head ordered D-dimer normal Chest x-ray negative Mendy test negative Rapid flu test negative Plan discussed with: Patient Date of Service: Jun 16, 2024 Billing Provider: YUMI ALVARADO MD Common Visit Codes: [id number] INP/OBS CARE(HIGH) YUMI ALVARADO MD Jun 16, 2024 11:54
[2024-06-16] MEDS ORDERED: AZIT500T66 PO (11:55)
[2024-06-16] MEDS ORDERED: EMPA1TAB PO (11:55)
--- NOTE | 2024-06-16 11:58 | DVHDS2 ---
Discharge Summary Date of Admission Jun 14, 2024 at 01:53 Date of Discharge: Jun 16, 2024 Admitting Diagnosis Generalized weakness Wounds: None Labs/Diagnostic Data: Laboratory Results Test 06/14/24 13:50 06/14/24 11:00 06/14/24 05:14 Influenza Type A Antigen Negative (Negative) Influenza Type B Antigen Negative (Negative) SARS-CoV-2 Antigen (Rapid) Negative (NEGATIVE) Prothrombin Time 11.3 sec (9.3-11.8) Prothrombin Time INR 1.07 (0.9-1.15) Activated Partial Thromboplast Time 26.8 SEC (24.5-34.5) D-Dimer, Quantitative 0.46 mg/L FEU (0.0-0.49) Sodium Level 141 mmol/L (136-145) Potassium Level 4.2 mmol/L (3.5-5.1) Chloride Level 108 mmol/L (98-107) Carbon Dioxide Level 25 mmol/L (20-31) Anion Gap 8 (5-15) Blood Urea Nitrogen 22 mg/dL (9-23) Creatinine 1.11 mg/dL (0.550-1.02) Glomerular Filtration Rate Calc 51 mL/min (>90) BUN/Creatinine Ratio 19.8 (10.0-20.0) Serum Glucose 95 mg/dL (74-106) Calcium Level 9.8 mg/dL (8.7-10.4) Magnesium Level 1.9 mg/dL (1.6-2.6) Total Bilirubin 0.3 mg/dL (0.2-1.0) Aspartate Amino Transferase (AST) 12 U/L (13-40) Alanine Aminotransferase (ALT) < 9 U/L (7-40) Alkaline Phosphatase 71 U/L (46-116) Total Protein 6.6 g/dL (5.7-8.2) Albumin 4.5 g/dL (3.2-4.8) Triglycerides Level 104 mg/dL (< 150) Cholesterol Level 187 mg/dL (< 200) LDL Cholesterol 117 mg/dL (< 100) HDL Cholesterol 56 mg/dL (40-59) White Blood Count 7.8 10^3/uL (4.4-10.8) Red Blood Count 4.06 10^6/uL (4.0-5.20) Hemoglobin 10.6 g/dL (12.2-16.2) Hematocrit 33.2 % (36.0-46.0) Mean Corpuscular Volume 81.8 fL (80.0-100.0) Mean Corpuscular Hemoglobin 26.1 pg (28.0-32.0) Mean Corpuscular Hemoglobin Concent 31.9 g/dL (32.0-36.0) Red Cell Distribution Width 17.5 % (11.8-14.3) Platelet Count 321 10^3/uL (140-450) Mean Platelet Volume 8.7 fL (6.9-10.8) Neutrophils (%) (Auto) 83.6 % (37.0-80.0) Lymphocytes (%) (Auto) 11.0 % (10.0-50.0) Monocytes (%) (Auto) 2.2 % (0.0-12.0) Eosinophils (%) (Auto) 2.4 % (0.0-7.0) Basophils (%) (Auto) 0.8 % (0.0-2.0) Neutrophils # (Auto) 6.5 10 ^3/uL (1.6-8.6) Lymphocytes # (Auto) 0.9 10 ^3/uL (0.4-5.4) Monocytes # (Auto) 0.2 10 ^3/uL (0-1.3) Eosinophils # (Auto) 0.2 10 ^3/uL (0-0.8) Basophils # (Auto) 0.1 10 ^3/uL (0-0.2) Nucleated Red Blood Cells 1.5 % Platelet Estimate Adequate Large Platelets Few Hemoglobin A1c 5.5 % A1C (<5.7) B-Type Natriuretic Peptide 219.41 pg/mL (0-100) Vitamin B12 Level 525 pg/mL (211-911) Thyroid Stimulating Hormone (TSH) 0.74 uIU/mL (0.55-4.78) Other Laboratory Tests 06/14/24 11:00 06/14/24 05:14 Brief Hx & Hospital Course: 8-year-old female with a history of hypertension hypercholesterolemia COPD history of PE on Eliquis depression came in for generalized weakness patient had acute on chronic congestive heart failure exacerbation seen by Cardiology Dr. Friend ejection fraction 55 percent advised to continue the home medications added Jardiance possible community-acquired pneumonia treated with Rocephin azithromycin Mendy test negative rapid flu test negative chest x-ray negative D-dimer normal discharged home. At the time of discharge patient on room air and stable vital signs with the daughter at the bedside. His she will follow up with the primary Dr Dr.Al Pineda Consults/Reason for consult Cardiology Dr. Friend Operations or Procedures Echocardiogram Condition at Discharge: Fair Final Diagnosis/Problems List Acute generalized weakness: Labs normal: Acute on chronic congestive heart failure : Consult for Cardiology rosemarie Milian, ejection fraction 55 percent, no new medications lasix Possible Community-acquired pneumonia: Rocephin and Zithromax Hypertension Hypercholesterolemia History of COPD History of PE on Eliquis Depression: Zoloft Risperdal History of fall at home: CT head ordered D-dimer normal Chest x-ray negative Mendy test negative Rapid flu test negative Discharge Disposition: Home Discharge Instruct/Medications Diet: Cardiac 2g Na,low cholest Activity: Light activity Follow Up/Referral: Resume all previous home medications Follow up with the primary doc Dr Wu Medications: Jardiance Azithromycin Transmitted to pharmacy 35 (Time Taken for discharge summary 35 minutes) Discharge Statement: "Patient was advised to return to the ER or call 911 if any headaches, dizziness, shortness of breath, chest pain, abdominal pain, bleeding, fevers, or worsening of medical condition. Patient was counseled about treatment plan, medications, possible side effects, patientverbalized understanding. All questions were answered to the best of my ability. This discharge took greater then 30 minutes in planning, reviewing documentation, counseling the patient, and discussing with other team members." ASSESSMENT ASSESSMENT Hospital Course improved Assessment Acute generalized weakness: Labs normal: Acute on chronic congestive heart failure : Consult for Cardiology rosemarie Milian, ejection fraction 55 percent, no new medications lasix Possible Community-acquired pneumonia: Rocephin and Zithromax Hypertension Hypercholesterolemia History of COPD History of PE on Eliquis Depression: Zoloft Risperdal History of fall at home: CT head ordered D-dimer normal Chest x-ray negative Mendy test negative Rapid flu test negative Date of Service: Jun 16, 2024 Billing Provider: YUMI ALVARADO MD Common Visit Codes: [id number] DISCH DAY >30min YUMI ALVARADO MD Jun 16, 2024 11:58
[2024-06-16 12:23] VITALS: BP 123/56; PULSE 59; RESP 15; TEMP 98.9; O2SAT 96
[2024-06-16 12:30] VITALS: BP 136/73; PULSE 65; RESP 17; TEMP 98.6; O2SAT 91
[2024-06-17 12:07] LABS: Vitamin D 25-Hydroxy 100 ng/mL (.); Vitamin D-2 25-Hydroxy <1.0 ng/mL (.); Vitamin D-3 25-Hydroxy 100 ng/mL (.)
== END 2024-06-16 13:35 | disposition home or self-care (01) | DRG 177 ==
LOC: TELE-WESTW 01:53
PROVIDERS: ADMIT Family Medicine; ATTEND Family Medicine
DX: J15.69 Pneumonia due to other Gram-negative bacteria (principal); I50.33 Acute on chronic diastolic (congestive) heart failure; F03.93 Unspecified dementia, unspecified severity, with mood disturbance; J44.0 Chronic obstructive pulmonary disease with (acute) lower respiratory infection; I11.0 Hypertensive heart disease with heart failure; J15.9 Unspecified bacterial pneumonia; F41.9 Anxiety disorder, unspecified; Z20.822 Contact with and (suspected) exposure to COVID-19; I08.1 Rheumatic disorders of both mitral and tricuspid valves; E66.01 Morbid (severe) obesity due to excess calories; E78.00 Pure hypercholesterolemia, unspecified; Z86.718 Personal history of other venous thrombosis and embolism; Z86.711 Personal history of pulmonary embolism; Z82.49 Family history of ischemic heart disease and other diseases of the circulatory system; Z79.01 Long term (current) use of anticoagulants; Z68.27 Body mass index [BMI] 27.0-27.9, adult; Z79.899 Other long term (current) drug therapy
CPT/HCPCS: 36415; 70450; 71045; 80053; 80061; 82306; 82607; 83036; 83735; 83880; 84443; 85025; 85379; 85610; 85730; 87081; 87426; 87804; 93306; G0378